=== PATIENT | male | born 1930 | race Caucasian/White ===

== ENCOUNTER → 2016-07-26 | Outpatient (CLI) | payer OTHER ==
[~2016-07-26] MED LIST: ACETAMINOPHEN-H1 TA2 PO; CARVEDILOL3.125 MG PO; DARVOCET N 1001 TAB PO; DOXYCYCLINE100 M3 PO; FISH OIL CONC1000 M2 PO; FUROSEMIDE20 M1 PO; GENERLAC10 GM/15 M PO; LUTEIN6 M2 PO; MAPAP325 MG PO; ONE DAILY MAXI1 EAC1 PO
[2016-07-26 11:55] LABS: BASO % 0.5 % (0.0-1.0); EOS # 0.1 10*3/uL (0.0-0.4); EOS % 5.3 % (1.0-4.0); HEMATOCRIT 28.5 % (42.0-52.0); HEMOGLOBIN 9.2 g/dl (14.0-18.0); LYMPH # 0.3 10*3/uL (1.3-4.4); MEAN CELL VOLUME 86.9 fl (80.0-94.0); MEAN CORPUSCULAR HGB CONC 32.3 g/dl (33.0-37.0); MEAN PLATELET VOLUME 8.8 fl (9.6-12.3); MONO # 0.1 10*3/uL (0.1-1.0); MONO % 5.8 % (3.0-9.0); NEUT # 1.5 10*3/uL (2.3-7.9); NEUT % 73.4 % (47.0-73.0); PLATELET COUNT AUTOMATED 62 10*3/uL (130-400); RED BLOOD COUNT 3.28 10*6/uL (4.50-5.90); RED CELL DISTRI WIDTH 17.6 % (0-14.5); WHITE BLOOD COUNT 2.1 10*3/uL (4.8-10.8)
[2016-07-26 12:29] LABS: ALBUMIN 2.5 gm/dl (3.1-4.5); ALKALINE PHOSPHATASE 127 U/L (45-117); BILIRUBIN, TOTAL 1.3 mg/dl (0.2-1.0); BUN 15 mg/dl (7-24); CARBON DIOXIDE 26 mmol/L (21-32); CHLORIDE 112 mmol/L (98-107); EST GLOM FILT AFRICAN AMERICAN > 60 ml/min; GLUCOSE 113 mg/dL (65-99); POTASSIUM 3.8 mmol/L (3.5-5.1); SGOT/AST 38 IU/L (3-35); SGPT/ALT 24 U/L (12-78); SODIUM 144 mmol/L (136-145); TOTAL PROTEIN 7.6 gm/dL (6.4-8.2)
[2016-07-26 13:22] LABS: IRON 225 ug/dL (65-175); IRON SATURATION 83 %; UIBC 44 ug/dL (110-410)
[2016-07-26 13:30] LABS: FOLIC ACID 15.04 ng/mL (>5.38); VITAMIN D, 25-HYDROXY 34.8 ng/mL (30-100)
== END | disposition home or self-care (01) ==
LOC: LAB 11:24
PROVIDERS: Internal Medicine
DX: N18.3 Chronic kidney disease, stage 3 (moderate) (principal); D50.0 Iron deficiency anemia secondary to blood loss (chronic); D64.9 Anemia, unspecified

== ENCOUNTER → 2016-07-28 | Outpatient (CLI) | payer OTHER | END | disposition home or self-care (01) | LOC: LAB 09:04 | DX: N18.3 Chronic kidney disease, stage 3 (moderate) (principal); D50.0 Iron deficiency anemia secondary to blood loss (chronic); D64.9 Anemia, unspecified ==

== ENCOUNTER → 2016-10-20 | Outpatient (CLI) | payer OTHER ==
[2016-10-20 16:02] LABS: HEMATOCRIT 27.1 % (42.0-52.0); HEMOGLOBIN 8.3 g/dl (14.0-18.0); MEAN CELL VOLUME 85.8 fl (80.0-94.0); MEAN CORPUSCULAR HGB 26.3 pg (27.0-31.0); MEAN CORPUSCULAR HGB CONC 30.6 g/dl (33.0-37.0); MEAN PLATELET VOLUME 8.9 fl (9.6-12.3); PLATELET COUNT AUTOMATED 59 10*3/uL (130-400); RED BLOOD COUNT 3.16 10*6/uL (4.50-5.90); RED CELL DISTRI WIDTH 15.6 % (0-14.5)
[2016-10-20 16:16] LABS: BUN 12 mg/dl (7-24); CARBON DIOXIDE 27 mmol/L (21-32); CHLORIDE 109 mmol/L (98-107); EST GLOM FILT AFRICAN AMERICAN > 60 ml/min; GLUCOSE 86 mg/dL (65-99); POTASSIUM 3.9 mmol/L (3.5-5.1); SODIUM 145 mmol/L (136-145)
[2016-10-20 16:28] LABS: EOSINOPHIL # 0.1 10*3/uL (0-0.4); EOSINOPHILS 5 % (1-4); HYPOCHROMIA SLIGHT; LYMPHOCYTE # 0.2 10*3/uL (1.3-4.4); MONOCYTE # 0.1 10*3/uL (0.1-1.0); NEUTROPHIL # 1.5 10*3/uL (2.3-7.9); NEUTROPHILS 81 % (47-73); PLATELET SUFFICIENCY LOW (NORMAL); POLYCHROMASIA SLIGHT; TOTAL CELLS COUNTED 100 #CELLS
[2016-10-20 16:36] LABS: WHITE BLOOD COUNT 1.9 10*3/uL (4.8-10.8)
== END | disposition home or self-care (01) ==
LOC: LAB 15:18
PROVIDERS: Internal Medicine
DX: I50.32 Chronic diastolic (congestive) heart failure (principal); D63.8 Anemia in other chronic diseases classified elsewhere

== ENCOUNTER → 2016-11-18 | Outpatient (CLI) | payer OTHER ==
[~2016-11-18] MED LIST changes: +PREDNISONE50 MG PO; +ULTRAM50 MG PO
== END | disposition home or self-care (01) ==
LOC: RAD 15:49
DX: M47.896 Other spondylosis, lumbar region (principal); M16.12 Unilateral primary osteoarthritis, left hip

== ENCOUNTER 2016-11-22 09:23 | Emergency (ER) | payer OTHER ==
[~2016-11-22] VITALS: Ht 180.3 cm; Wt 77.1 kg
[~2016-11-22 09:23] MED LIST changes: -PREDNISONE50 MG PO; -ULTRAM50 MG PO
[2016-11-22 10:16] LABS: BASO % 0.5 % (0.0-1.0); EOS # 0.1 10*3/uL (0.0-0.4); EOS % 5.4 % (1.0-4.0); HEMATOCRIT 25.7 % (42.0-52.0); LYMPH # 0.3 10*3/uL (1.3-4.4); LYMPH % 13.4 % (27.0-41.0); MEAN CELL VOLUME 81.6 fl (80.0-94.0); MEAN CORPUSCULAR HGB 25.4 pg (27.0-31.0); MEAN CORPUSCULAR HGB CONC 31.1 g/dl (33.0-37.0); MEAN PLATELET VOLUME 9.2 fl (9.6-12.3); MONO # 0.2 10*3/uL (0.1-1.0); MONO % 8.4 % (3.0-9.0); NEUT # 1.5 10*3/uL (2.3-7.9); NEUT % 71.8 % (47.0-73.0); PLATELET COUNT AUTOMATED 56 10*3/uL (130-400); RED BLOOD COUNT 3.15 10*6/uL (4.50-5.90); RED CELL DISTRI WIDTH 17.3 % (0-14.5)
[2016-11-22 10:25] LABS: INTERNATIONAL NORM RATIO 1.1 (2.0-3.5); PROTHROMBIN TIME 12.2 SECONDS (9.0-12.4)
[2016-11-22 10:32] LABS: ALBUMIN 2.6 gm/dl (3.1-4.5); ALKALINE PHOSPHATASE 93 U/L (45-117); BILIRUBIN, TOTAL 1.4 mg/dl (0.2-1.0); BUN 16 mg/dl (7-24); C-REACTIVE PROTEIN < 0.29 MG/DL (0-0.3); CARBON DIOXIDE 26 mmol/L (21-32); CHLORIDE 109 mmol/L (98-107); EST GLOM FILT AFRICAN AMERICAN > 60 ml/min; GLUCOSE 97 mg/dL (65-99); POTASSIUM 3.8 mmol/L (3.5-5.1); SGOT/AST 30 IU/L (3-35); SGPT/ALT 15 U/L (12-78); SODIUM 142 mmol/L (136-145); TOTAL PROTEIN 7.7 gm/dL (6.4-8.2)
[2016-11-22 11:56] LABS: BILIRUBIN NEGATIVE (NEGATIVE); BLOOD TRACE-INTACT (NEGATIVE); CLARITY CLEAR (CLEAR); COLOR YELLOW (YELLOW); GLUCOSE NEGATIVE (NEGATIVE); KETONE NEGATIVE (NEGATIVE); LEUKO ESTERASE NEGATIVE (NEGATIVE); NITRITE NEGATIVE (NEGATIVE); PROTEIN NEGATIVE (NEGATIVE); SPECIFIC GRAVITY <= 1.005 (1.005-1.030)
[2016-11-22 12:05] LABS: URINE REFLEX COMMENT NO (NO); WBC 0-2 wbc/hpf (0-5)
[2016-11-22 12:51] VITALS: BP 140/61
[2016-11-22] MEDS ORDERED: PREDNISONE50 MG PO (13:06)
[2016-11-22] MEDS ORDERED: ULTRAM50 MG PO (13:08)
== END 2016-11-22 13:51 | disposition home or self-care (01) ==
LOC: ED 09:23
PROVIDERS: Emergency Medicine
DX: M54.5 Low back pain (principal); K59.00 Constipation, unspecified; K74.60 Unspecified cirrhosis of liver; I12.9 Hypertensive chronic kidney disease with stage 1 through stage 4 chronic kidney disease, or unspecified chronic kidney disease; N18.3 Chronic kidney disease, stage 3 (moderate); Z90.49 Acquired absence of other specified parts of digestive tract; Z86.73 Personal history of transient ischemic attack (TIA), and cerebral infarction without residual deficits

== ENCOUNTER 2017-03-01 19:01 | Inpatient (IN) | payer OTHER ==
[~2017-03-01] VITALS: Ht 177.8 cm; Wt 74.0 kg
--- NOTE | ~2017-03-01 | PR ---
[place], [place] PROGRESS NOTE NAME: JUSTIN FRITZ [facility] #: [id number] UNIT #: [id number] ROOM: [place] [address] DOCTOR: BORIS RING MD BIRTHDATE: [birth year] DOS: 03/03/2017 SUBJECTIVE: The patient was seen at his bedside today, 03/03/2017, in the Intensive Care Unit for followup of his elevated troponin level. He is an 86-year-old man with nonalcoholic cirrhosis and chronic liver failure, who presented with increased confusion and elevated ammonia level. His troponin level was noted to be mildly elevated on admission and arose in a fashion suggesting an acute myocardial injury. Since he has been here, he has been given lactulose. His ammonia level has fallen and his sensorium has improved. A CAT scan of his chest was done and showed a pulmonary nodule suspicious for malignancy and metastatic disease. OBJECTIVE: GENERAL: On exam, he is an elderly man who is lying in bed and appears comfortable. He is awake and alert. VITAL SIGNS: Pulse is 65 and regular, blood pressure is 101/46. He is afebrile. NECK: Supple. He has no jugular distention. He does have mild hepatojugular reflux. Carotids are full. I heard no bruits. LUNGS: Respirations were unlabored. His chest had decreased breath sounds at the bases. HEART: Has a regular rhythm. He has a fourth heart sound. I did not hear a third heart sound or significant murmur. ABDOMEN: Soft and normoactive. EXTREMITIES: Showed no edema. LABORATORY DATA: Peak troponin level was 1.9 early this morning. Sodium is 144, potassium 3.6, BUN 16, creatinine 1.17. Hemoglobin is 7.6 with hematocrit 25.6, 4100 white cells and 41,000 platelets present. I reviewed his electrocardiogram from admission, he has mild nonspecific ST changes, but no ST elevation. I reviewed his echocardiogram today. A limited study was done for wall motion analysis. His ejection fraction is normal at greater than 60%. No specific regional wall motion abnormality was seen. IMPRESSION: 1. Non-ST segment elevation myocardial infarction. 2. Cirrhosis with recurrent hepatic failure. 3. Abnormal CAT scan of the chest, suggesting the presence of metastatic disease to the lungs. 4. Pancytopenia. 5. History of stroke. 6. Stage 3 chronic renal insufficiency, improving. PLAN: The patient certainly does show signs of an acute myocardial infarction by cardiac biomarkers, but left ventricular function is well preserved and he does not have any chest pain. For now, I would manage him very conservatively. I agree with the use of aspirin and beta blockers. Statins are not appropriate [place], [place] PROGRESS NOTE NAME: JUSTIN FRITZ [facility] #: [id number] UNIT #: [id number] ROOM: [place] [address] DOCTOR: MARÍA ELENA KNOX,BORIS BIRTHDATE: [birth year] in his management because of his hepatic failure. I think that the best long-term management is conservative and comfort oriented. No other aggressive or invasive cardiac assessment or management is planned at this time. We will continue to follow him with his primary physicians and we thank the hospitalist doctors for asking our advice regarding his care. BORIS RING MD CM:PNTRANS [id number] BORIS RING MD 03/03/17 1033 interface
--- NOTE | ~2017-03-01 | CON ---
[place], [place] REPORT OF CONSULTATION NAME: JUSTIN FRITZ [facility] #: [id number] UNIT #: [id number] ROOM: 409 DOCTOR: YONNY MA MD BIRTHDATE: [birth year] DOS: 03/08/2017 HISTORY OF PRESENT ILLNESS: The patient is a pleasant 86-year-old Euro-Gabonese gentleman brought by his daughter because of change in mental status and was treated accordingly. On routine CBC examination, he was found to have pancytopenia as well as new lung mass as well as a progressive lung mass, consulted for further evaluation and management. PAST MEDICAL HISTORY: Chronic renal failure stage III, cirrhosis of liver, pancytopenia, splenomegaly, diastolic heart failure, hepatic encephalopathy, history of CVA, hypertension, macular degeneration, and severe protein-calorie malnutrition. PAST SURGICAL HISTORY: Left inguinal hernia repair, history of unilateral nephrectomy, permanent right-sided nephrectomy, history of appendectomy, cholecystectomy, and ventral hernia repair. SOCIAL HISTORY: No smoking, drinking, or drug abuse. FAMILY HISTORY: Father at age 70. Mother at age 70. ALLERGIES: No allergies. MEDICATIONS: Folic acid, lactulose, ____, spironolactone. REVIEW OF SYSTEMS CONSTITUTIONAL: No chills. No fatigue. No fever. No loss of appetite. No night sweats. No weakness. No weight loss. HEENT: No trouble swallowing. No loss of smell. No loss of hearing. No double vision. No pain. No discharge. ENT AND RESPIRATORY: No wheeze. No sore throat. No change in voice. No hearing loss. No nose bleed. No cough. No trouble breathing through nose. No shortness of breath. No coughing up blood. No epistaxis. CARDIOVASCULAR: No chest pain. No dizziness. No irregular heartbeat. No leg edema. No pain in legs while walking. No palpitations. No shortness of breath. DERMATOLOGIC: No acne. No hives. No laceration. No mole. No rash. ENDOCRINE: No cold intolerance. No diabetes. No fatigue. No hot flashes. No polydipsia. No polyuria. No urinating frequently. No weight loss. HEMATOLOGIC AND LYMPH: No fatigue. No easy bruising. GASTROENTEROLOGIC: No change in bowel habits. No indigestion. No frequent bloating. No vomiting blood. No abdominal cramping. No nausea. No heartburn. No vomiting. No abdominal pain. No dysphagia. No diarrhea. No constipation. No blood in stool. MALE REPRODUCTIVE: No testicular pain. No difficulty with erection. No diminished sexual drive. No penile discharge. MUSCULOSKELETAL: No back pain. No muscle pain or weakness. No neck pain. No tingling/numbness. No swelling/bruising. No osteoporosis treatment. OPTHALMOLOGIC: No double vision. No diminished vision. No loss of vision. UROLOGIC: No dysuria. No frequent nighttime urination. No pain with [place], [place] REPORT OF CONSULTATION NAME: JUSTIN FRITZ UNIT #: [id number] ROOM: [facility] DOCTOR: YONNY MA MD BIRTHDATE: [birth year] urination. No difficulty urinating. No blood in urine. No frequent urination. No urinary incontinence. NEUROLOGIC: No loss of sensation in specific body area. No vertigo. No burning pain in feet. No trouble with balance. No trouble with coordination. No loss of consciousness. No loss of feeling/power. No confusion. No headache. No tingling/numbness. PSYCHOLOGIC: No tinnitus. No headaches. No shortness of breath. No weight decrease. No nausea. No vomiting. No abdominal discomfort. No constipation. No diarrhea. No depression. No anxiety. PHYSICAL EXAMINATION: GENERAL: A pleasant gentleman in no apparent distress. VITAL SIGNS: Stable, afebrile. Blood pressure 120/58, respirations 18, pulse 57, and temperature 98.1. HEENT: Oral mucosa appears intact. The external ears are normal in appearance. Nares are patent without lesions, exudates, erythema, or inflammation. Tongue is symmetrical. Uvula is midline. NECK AND THYROID: Neck supple without palpable masses. Trachea is midline. No thyromegaly. No carotid bruit or JVD. BREASTS: Normal. Nipples unremarkable. No drainage. No lumps felt on either side. HEART: Normal S1, S2, without significant murmur, rub, or gallop. LUNGS: Clear to auscultation and percussion with good air entry bilaterally. The patient is breathing easily without the use of accessory muscles. Diaphragmatic excursions are intact. ABDOMEN: No costovertebral angle tenderness. Soft. No organomegaly or masses. Nontender. No hernias present. Liver and spleen are not palpable. LYMPHATIC: No adenopathy noted in the cervical, supraclavicular, axillary, or inguinal regions. NEUROLGIC: Nonfocal. Oriented to person, place, and time. MENTAL STATUS: Appropriate for mood and affect. PERIPHERAL PULSES: No varicosities. Femoral and pedal pulses are palpable. EXTREMITIES: Without cyanosis, clubbing, or edema. No gross anomalies. LABORATORY DATA: Iron 149, TIBC 268, ferritin 25.8, vitamin B12 is 366, and folate 13.51. White count 1.8, hemoglobin 7.6, hematocrit 24.6, and platelet count 60,000. RADIOLOGY: CT scan of the chest showed a spiculated 2.2 x 1.6 cm mass in the right upper lobe, it has increased from 1.0 x 1.6 cm in diameter since 07/2009, suspicious for pulmonary malignancy, as well as a 3 mm nodule in the right lung base. Ultrasound of the belly showed no evidence of intra-abdominal ascites. ASSESSMENT: 1. Pancytopenia secondary to splenomegaly/cirrhosis of the liver. 2. Increase in the lung mass. 3. Status post 1 unit of packed RBC. PLAN: I had a detailed discussion with daughter Jazz ____ who does not want any aggressive measures to be done. Subsequently, transfusion on p.r.n. basis [place], [place] REPORT OF CONSULTATION NAME: JUSTIN FRITZ UNIT #: [id number] ROOM: 409 DOCTOR: YONNY MA MD BIRTHDATE: [birth year] as well as follow as outpatient and comfort and palliative measures. Jazz agreed with the plan. I also talked ____. His hemoglobin is 7.6, we will just keep a watch at this time. If it drops less than 7 to 7.5, we can give him a unit of blood at that time. Otherwise, follow up as outpatient. We will follow. Thanks for consulting and letting me participate in the care of this patient. YONNY MA MD CM:CONSTR:REPORT OF CONSULTATION 1537 03/09/17 0544 interface
--- NOTE | ~2017-03-01 | PR ---
[place], [place] PROGRESS NOTE [facility] [id number] UN[facility] #: [id number] ROOM: 409 DOCTOR: CARLOS WALLS BIRTHDATE: [birth year] DOS: 03/05/2017 SUBJECTIVE: The patient is an 86-year-old male who is being followed for a left leg cellulitis. He is currently on Ancef. His MRSA screen was negative. Blood cultures were negative. He is alert and oriented. Denies any fevers, chills, nausea, vomiting or diarrhea, not having any pain in the leg. LABORATORY DATA: Show WBC 1.7, platelets 55, BUN 10, creatinine 1.19, AST 46, ALT 18. Albumin 2. CURRENT MEDICATIONS: Include Ancef, lactulose, Toprol, aspirin, Protonix, Restoril, Zofran. PHYSICAL EXAMINATION: VITAL SIGNS: He has been afebrile. Show temperature 97.8, pulse 90, respirations 18, BP 145/57. GENERAL: An 86-year-old pleasant male in no acute distress. HEAD, EYES, EARS, NOSE AND THROAT: Normocephalic, no thrush. LUNGS: Clear to auscultation bilaterally. Respirations even and unlabored. HEART: Regular rhythm with murmur noted. ABDOMEN: Soft, nontender. EXTREMITIES: Left lower extremity +2 edema. No erythema, no tenderness. ASSESSMENT: Left leg cellulitis, which has improved. The erythema has resolved. PLAN: We will switch him over to the Keflex and probably stop the antibiotics in the next couple of days. He needs ultrasound of the left lower extremity, rule out DVT. Regarding his pancytopenia, I reviewed his labs going back over his lifetime time in the computer and appears that these are fairly close to baseline for him due to his cirrhosis. ADDENDUM I agree with the above plans as described. We will follow the patient accordingly and make adjustments as necessary. OCTOBER TITI GONZALEZ [place], [place] PROGRESS NOTE NAME: JUSTIN FRITZ UNIT #: [id number] ROOM: 409 DOCTOR: CARLOS WALLS BIRTHDATE: [birth year] JOSE C CARRANZA MD CM:GEORGE [id number] [phone] CARLOS WALLS 03/09/17 0544 interface
[~2017-03-01 19:01] MED LIST changes: +ALDACTONE25 MG PO; +CEPHULAC10 GM/151 PO; +LACTULOSE20 GM/30 M PO; -ONE DAILY MAXI1 EAC1 PO; +PREDNISONE50 MG PO; +ULTRAM50 MG PO; +[UNRECOGNIZED DRUG - OTHER] PO
[2017-03-01 19:05] VITALS: BP 139/69
[2017-03-01 19:51] LABS: BASO % 0.1 % (0.0-1.0); EOS # 0.1 10*3/uL (0.0-0.4); HEMATOCRIT 28.9 % (42.0-52.0); HEMOGLOBIN 8.7 g/dl (14.0-18.0); LYMPH # 0.2 10*3/uL (1.3-4.4); LYMPH % 3.3 % (27.0-41.0); MEAN CELL VOLUME 79.8 fl (80.0-94.0); MEAN CORPUSCULAR HGB CONC 30.1 g/dl (33.0-37.0); MEAN PLATELET VOLUME 9.2 fl (9.6-12.3); MONO # 0.5 10*3/uL (0.1-1.0); MONO % 6.6 % (3.0-9.0); NEUT # 6.1 10*3/uL (2.3-7.9); NEUT % 88.6 % (47.0-73.0); PLATELET COUNT AUTOMATED 64 10*3/uL (130-400); RED BLOOD COUNT 3.62 10*6/uL (4.50-5.90); RED CELL DISTRI WIDTH 18.7 % (0-14.5); WHITE BLOOD COUNT 6.9 10*3/uL (4.8-10.8)
[2017-03-01 20:01] LABS: ACT PARTIAL THROMBO TIME 26.1 SECONDS (20.8-31.5); INTERNATIONAL NORM RATIO 1.1 (2.0-3.5)
[2017-03-01 20:12] LABS: ALBUMIN 2.7 gm/dl (3.1-4.5); CREATININE 1.67 mg/dL (0.70-1.30); MAGNESIUM 1.8 mg/dL (1.5-2.1); POTASSIUM 4.1 mmol/L (3.5-5.1); TOTAL PROTEIN 8.1 gm/dL (6.4-8.2)
[2017-03-01 20:13] LABS: TROPONIN I 0.032 ng/ml (<0.045)
[2017-03-01 20:57] LABS: BILIRUBIN NEGATIVE (NEGATIVE); BLOOD NEGATIVE (NEGATIVE); CLARITY SL CLOUDY (CLEAR); COLOR YELLOW (YELLOW); GLUCOSE NEGATIVE (NEGATIVE); KETONE TRACE (NEGATIVE); LEUKO ESTERASE NEGATIVE (NEGATIVE); NITRITE NEGATIVE (NEGATIVE); PH 5.5 (5.0-9.0); SPECIFIC GRAVITY >= 1.030 (1.005-1.030); UROBILINOGEN 0.2 E.U./dl (0.2-1.0)
[2017-03-01 21:15] VITALS: BP 130/72
[2017-03-01 21:22] LABS: BACTERIA TRACE; WBC 0-2 wbc/hpf (0-5)
[2017-03-01 22:00] VITALS: BP 118/74
[2017-03-01] MEDS ORDERED: LACTULOSE20 GM/30 M PO (23:23)
[2017-03-02] VITALS: BP 141/63
[2017-03-02 03:34] LABS: BASO % 0.1 % (0.0-1.0); EOS % 0.3 % (1.0-4.0); HEMATOCRIT 26.9 % (42.0-52.0); HEMOGLOBIN 8.1 g/dl (14.0-18.0); LYMPH # 0.3 10*3/uL (1.3-4.4); LYMPH % 3.6 % (27.0-41.0); MEAN CELL VOLUME 80.3 fl (80.0-94.0); MEAN CORPUSCULAR HGB 24.2 pg (27.0-31.0); MEAN CORPUSCULAR HGB CONC 30.1 g/dl (33.0-37.0); MEAN PLATELET VOLUME 8.4 fl (9.6-12.3); MONO # 0.6 10*3/uL (0.1-1.0); MONO % 8.2 % (3.0-9.0); NEUT % 86.8 % (47.0-73.0); PLATELET COUNT AUTOMATED 52 10*3/uL (130-400); RED BLOOD COUNT 3.35 10*6/uL (4.50-5.90); RED CELL DISTRI WIDTH 18.6 % (0-14.5)
[2017-03-02 03:47] LABS: ALBUMIN 2.5 gm/dl (3.1-4.5); CREATININE 1.54 mg/dL (0.70-1.30); MAGNESIUM 1.8 mg/dL (1.5-2.1); PHOSPHOROUS 2.8 mg/dL (2.5-4.9); POTASSIUM 3.7 mmol/L (3.5-5.1); TOTAL PROTEIN 7.6 gm/dL (6.4-8.2)
[2017-03-02 04:59] VITALS: BP 146/60
[2017-03-02 08:00] VITALS: BP 137/79
[2017-03-02] MEDS ORDERED: ENSURE ORIGINA237 ML PO (08:05)
[2017-03-02 12:00] VITALS: BP 109/50
[2017-03-02 16:00] VITALS: BP 102/51
[2017-03-02 20:00] VITALS: BP 132/60
[2017-03-03] VITALS: BP 116/46
[2017-03-03 04:00] VITALS: BP 120/51
[2017-03-03 06:09] LABS: HEMATOCRIT 25.6 % (42.0-52.0); HEMOGLOBIN 7.6 g/dl (14.0-18.0); MEAN CELL VOLUME 81.5 fl (80.0-94.0); MEAN CORPUSCULAR HGB 24.2 pg (27.0-31.0); MEAN CORPUSCULAR HGB CONC 29.7 g/dl (33.0-37.0); MEAN PLATELET VOLUME 9.7 fl (9.6-12.3); PLATELET COUNT AUTOMATED 41 10*3/uL (130-400); RED BLOOD COUNT 3.14 10*6/uL (4.50-5.90); WHITE BLOOD COUNT 4.1 10*3/uL (4.8-10.8)
[2017-03-03 06:38] LABS: PLATELET SUFFICIENCY LOW (NORMAL); POLYCHROMASIA SLIGHT; TOTAL CELLS COUNTED 100 #CELLS
[2017-03-03 06:47] LABS: BUN 16 mg/dl (7-24); CHLORIDE 118 mmol/L (98-107); MAGNESIUM 1.6 mg/dL (1.5-2.1); POTASSIUM 3.6 mmol/L (3.5-5.1); SODIUM 144 mmol/L (136-145)
[2017-03-03 06:51] LABS: ALKALINE PHOSPHATASE 80 U/L (45-117); CREATININE 1.17 mg/dL (0.70-1.30); PHOSPHOROUS 1.9 mg/dL (2.5-4.9); SGOT/AST 50 IU/L (3-35); SGPT/ALT 21 U/L (12-78); TOTAL PROTEIN 6.4 gm/dL (6.4-8.2)
[2017-03-03 08:00] VITALS: BP 101/46
[2017-03-03 12:00] VITALS: BP 105/55
[2017-03-03 16:00] VITALS: BP 99/60
[2017-03-03 20:00] VITALS: BP 99/68
[2017-03-04] VITALS: BP 117/53
[2017-03-04 03:40] VITALS: BP 115/43
[2017-03-04 06:15] LABS: HEMATOCRIT 23.6 % (42.0-52.0); MEAN CELL VOLUME 81.4 fl (80.0-94.0); MEAN CORPUSCULAR HGB 24.1 pg (27.0-31.0); MEAN CORPUSCULAR HGB CONC 29.7 g/dl (33.0-37.0); MEAN PLATELET VOLUME 9.2 fl (9.6-12.3); PLATELET COUNT AUTOMATED 46 10*3/uL (130-400); RED CELL DISTRI WIDTH 18.7 % (0-14.5)
[2017-03-04 06:27] LABS: ALBUMIN 1.9 gm/dl (3.1-4.5); ALKALINE PHOSPHATASE 75 U/L (45-117); BUN 13 mg/dl (7-24); CHLORIDE 115 mmol/L (98-107); CREATININE 1.16 mg/dL (0.70-1.30); MAGNESIUM 1.8 mg/dL (1.5-2.1); PHOSPHOROUS 2.3 mg/dL (2.5-4.9); POTASSIUM 3.7 mmol/L (3.5-5.1); SGOT/AST 39 IU/L (3-35); SGPT/ALT 18 U/L (12-78); SODIUM 143 mmol/L (136-145); TOTAL PROTEIN 6.1 gm/dL (6.4-8.2)
[2017-03-04 07:09] LABS: OVALOCYTES FEW; PLATELET SUFFICIENCY LOW (NORMAL); POLYCHROMASIA SLIGHT; TOTAL CELLS COUNTED 100 #CELLS
[2017-03-04 08:00] VITALS: BP 112/60
[2017-03-04 12:00] VITALS: BP 120/78
[2017-03-04 20:00] VITALS: BP 114/54
[2017-03-05] VITALS: BP 110/60
[2017-03-05 06:39] LABS: HEMATOCRIT 24.8 % (42.0-52.0); HEMOGLOBIN 7.5 g/dl (14.0-18.0); MEAN CORPUSCULAR HGB 24.5 pg (27.0-31.0); MEAN CORPUSCULAR HGB CONC 30.2 g/dl (33.0-37.0); MEAN PLATELET VOLUME 9.8 fl (9.6-12.3); PLATELET COUNT AUTOMATED 55 10*3/uL (130-400); RED BLOOD COUNT 3.06 10*6/uL (4.50-5.90); RED CELL DISTRI WIDTH 18.7 % (0-14.5)
[2017-03-05 07:01] LABS: ALKALINE PHOSPHATASE 87 U/L (45-117); BUN 10 mg/dl (7-24); CHLORIDE 111 mmol/L (98-107); CREATININE 1.19 mg/dL (0.70-1.30); PHOSPHOROUS 2.3 mg/dL (2.5-4.9); POTASSIUM 3.9 mmol/L (3.5-5.1); SGOT/AST 46 IU/L (3-35); SGPT/ALT 18 U/L (12-78); SODIUM 141 mmol/L (136-145); TOTAL PROTEIN 6.7 gm/dL (6.4-8.2)
[2017-03-05 07:15] LABS: BASOPHILS 1 % (0-1); PLATELET SUFFICIENCY LOW (NORMAL); TOTAL CELLS COUNTED 100 #CELLS
[2017-03-05 07:17] LABS: OVALOCYTES FEW
[2017-03-05 07:32] LABS: WHITE BLOOD COUNT 1.7 10*3/uL (4.8-10.8)
[2017-03-05 09:00] VITALS: BP 112/50
[2017-03-05 12:00] VITALS: BP 133/50
[2017-03-05 18:52] VITALS: BP 145/57
[2017-03-05 20:00] VITALS: BP 122/42
[2017-03-06] VITALS: BP 114/51
[2017-03-06 06:01] LABS: HEMATOCRIT 23.2 % (42.0-52.0); HEMOGLOBIN 7.3 g/dl (14.0-18.0); MEAN CELL VOLUME 79.7 fl (80.0-94.0); MEAN CORPUSCULAR HGB 25.1 pg (27.0-31.0); MEAN CORPUSCULAR HGB CONC 31.5 g/dl (33.0-37.0); MEAN PLATELET VOLUME 8.7 fl (9.6-12.3); PLATELET COUNT AUTOMATED 61 10*3/uL (130-400); RED BLOOD COUNT 2.91 10*6/uL (4.50-5.90); RED CELL DISTRI WIDTH 18.5 % (0-14.5)
[2017-03-06 06:23] LABS: BUN 10 mg/dl (7-24); CHLORIDE 112 mmol/L (98-107); CREATININE 1.14 mg/dL (0.70-1.30); POTASSIUM 3.7 mmol/L (3.5-5.1); SODIUM 141 mmol/L (136-145)
[2017-03-06 06:32] LABS: ATYPICAL LYMPHS 1 % (0-0); BASOPHILS 2 % (0-1); PLATELET SUFFICIENCY LOW (NORMAL); TOTAL CELLS COUNTED 100 #CELLS
[2017-03-06 06:35] LABS: WHITE BLOOD COUNT 1.8 10*3/uL (4.8-10.8)
[2017-03-06 08:00] VITALS: BP 116/50
[2017-03-06 12:00] VITALS: BP 101/56
[2017-03-06 16:00] VITALS: BP 122/54
[2017-03-06 20:00] VITALS: BP 104/32
[2017-03-07] VITALS (9 sets, daily range): BP systolic 115–127; BP diastolic 34–64
[2017-03-07 06:12] LABS: HEMATOCRIT 22.1 % (42.0-52.0); HEMOGLOBIN 6.8 g/dl (14.0-18.0); MEAN CELL VOLUME 81.3 fl (80.0-94.0); MEAN CORPUSCULAR HGB CONC 30.8 g/dl (33.0-37.0); PLATELET COUNT AUTOMATED 54 10*3/uL (130-400); RED BLOOD COUNT 2.72 10*6/uL (4.50-5.90); RED CELL DISTRI WIDTH 18.7 % (0-14.5)
[2017-03-07 06:56] LABS: WHITE BLOOD COUNT 1.5 10*3/uL (4.8-10.8)
[2017-03-07 07:33] LABS: TOTAL CELLS COUNTED 100 #CELLS
[2017-03-07 07:34] LABS: OVALOCYTES FEW; PLATELET SUFFICIENCY LOW (NORMAL); POLYCHROMASIA SLIGHT
[2017-03-07 15:01] LABS: HEMATOCRIT 25.8 % (42.0-52.0); HEMOGLOBIN 8.1 g/dl (14.0-18.0)
[2017-03-08] VITALS: BP 140/49
[2017-03-08 06:30] LABS: HEMATOCRIT 24.6 % (42.0-52.0); HEMOGLOBIN 7.6 g/dl (14.0-18.0); MEAN CELL VOLUME 81.5 fl (80.0-94.0); MEAN CORPUSCULAR HGB 25.2 pg (27.0-31.0); MEAN CORPUSCULAR HGB CONC 30.9 g/dl (33.0-37.0); MEAN PLATELET VOLUME 9.6 fl (9.6-12.3); PLATELET COUNT AUTOMATED 60 10*3/uL (130-400); RED BLOOD COUNT 3.02 10*6/uL (4.50-5.90); RED CELL DISTRI WIDTH 18.5 % (0-14.5); RETICULOCYTE % 1.15 % (0.50-2.50)
[2017-03-08 06:36] LABS: TOTAL IRON BINDING CAPACITY 268 ug/dl (250-450)
[2017-03-08 07:41] LABS: TOTAL CELLS COUNTED 100 #CELLS
[2017-03-08 07:42] LABS: PLATELET SUFFICIENCY LOW (NORMAL); POLYCHROMASIA SLIGHT
[2017-03-08 07:43] LABS: WHITE BLOOD COUNT 1.8 10*3/uL (4.8-10.8)
[2017-03-08 08:00] VITALS: BP 130/59
[2017-03-08 08:25] LABS: FERRITIN 25.8 ng/mL (22.0-322.0)
[2017-03-08 08:27] LABS: IRON 149 ug/dL (65-175)
[2017-03-08 12:00] VITALS: BP 129/58
[2017-03-08 16:00] VITALS: BP 111/48
[2017-03-08 20:00] VITALS: BP 123/60
[2017-03-09] VITALS: BP 109/50
[2017-03-09 08:00] VITALS: BP 109/49
[2017-03-09 09:08] LABS: BASO % 0.4 % (0.0-1.0); EOS # 0.2 10*3/uL (0.0-0.4); EOS % 7.1 % (1.0-4.0); HEMATOCRIT 25.8 % (42.0-52.0); HEMOGLOBIN 7.9 g/dl (14.0-18.0); LYMPH # 0.4 10*3/uL (1.3-4.4); LYMPH % 18.3 % (27.0-41.0); MEAN CELL VOLUME 81.9 fl (80.0-94.0); MEAN CORPUSCULAR HGB 25.1 pg (27.0-31.0); MEAN CORPUSCULAR HGB CONC 30.6 g/dl (33.0-37.0); MEAN PLATELET VOLUME 8.9 fl (9.6-12.3); MONO # 0.2 10*3/uL (0.1-1.0); MONO % 6.7 % (3.0-9.0); NEUT # 1.5 10*3/uL (2.3-7.9); NEUT % 67.1 % (47.0-73.0); PLATELET COUNT AUTOMATED 65 10*3/uL (130-400); RED BLOOD COUNT 3.15 10*6/uL (4.50-5.90); RED CELL DISTRI WIDTH 18.6 % (0-14.5); WHITE BLOOD COUNT 2.2 10*3/uL (4.8-10.8)
[2017-03-09 12:00] VITALS: BP 121/54
[2017-03-09 16:00] VITALS: BP 112/46
[2017-03-09 20:00] VITALS: BP 112/42
[2017-03-10] VITALS: BP 134/56
[2017-03-10 06:43] LABS: HEMATOCRIT 24.8 % (42.0-52.0); HEMOGLOBIN 7.4 g/dl (14.0-18.0); MEAN CELL VOLUME 82.7 fl (80.0-94.0); MEAN CORPUSCULAR HGB 24.7 pg (27.0-31.0); MEAN CORPUSCULAR HGB CONC 29.8 g/dl (33.0-37.0); MEAN PLATELET VOLUME 8.9 fl (9.6-12.3); PLATELET COUNT AUTOMATED 61 10*3/uL (130-400); RED CELL DISTRI WIDTH 18.8 % (0-14.5)
[2017-03-10 07:01] LABS: BUN 14 mg/dl (7-24); CHLORIDE 109 mmol/L (98-107); CREATININE 1.17 mg/dL (0.70-1.30); POTASSIUM 4.1 mmol/L (3.5-5.1); SODIUM 141 mmol/L (136-145)
[2017-03-10 07:05] LABS: BASOPHILS 1 % (0-1); TOTAL CELLS COUNTED 100 #CELLS
[2017-03-10 07:06] LABS: PLATELET SUFFICIENCY LOW (NORMAL); POLYCHROMASIA SLIGHT
[2017-03-10 07:07] LABS: WHITE BLOOD COUNT 1.9 10*3/uL (4.8-10.8)
[2017-03-10 08:00] VITALS: BP 112/52
[2017-03-10 12:00] VITALS: BP 116/64; BP 128/62
[2017-03-10] MEDS ORDERED: KEFLEX 500 MG E2 CAP PO (14:39)
[2017-03-10] MEDS ORDERED: METOPROLOL SUCC25 M2 PO (14:39)
[2017-03-10] MEDS ORDERED: ASPIRIN ADULT L81 M2 PO (14:39)
[2017-03-10 20:00] VITALS: BP 124/40
[2017-03-11] VITALS: BP 107/45
[2017-03-11 08:00] VITALS: BP 117/58
== END 2017-03-11 13:00 | disposition home or self-care (01) | DRG 871 ==
LOC: ED 19:01 → EDHOLD 20:39 → ICCU 20:39 → 4E 03-04 14:02
PROVIDERS: Emergency Medicine Emergency Medical Services; Family Medicine; Internal Medicine; Internal Medicine Hematology & Oncology; Internal Medicine Nephrology; ADMIT Internal Medicine
PROC: 30233N1 Transfusion of Nonautologous Red Blood Cells into Peripheral Vein, Percutaneous Approach (ICD-10-PCS; principal; 2017-03-07)
DX: A41.9 Sepsis, unspecified organism (principal); K72.00 Acute and subacute hepatic failure without coma; I21.4 Non-ST elevation (NSTEMI) myocardial infarction; E43 Unspecified severe protein-calorie malnutrition; G93.41 Metabolic encephalopathy; D61.818 Other pancytopenia; E72.20 Disorder of urea cycle metabolism, unspecified; I13.0 Hypertensive heart and chronic kidney disease with heart failure and stage 1 through stage 4 chronic kidney disease, or unspecified chronic kidney disease; D69.6 Thrombocytopenia, unspecified; I50.32 Chronic diastolic (congestive) heart failure; L03.116 Cellulitis of left lower limb; R65.20 Severe sepsis without septic shock; K74.60 Unspecified cirrhosis of liver; Z66 Do not resuscitate; Z51.5 Encounter for palliative care; N18.3 Chronic kidney disease, stage 3 (moderate); H35.30 Unspecified macular degeneration; K43.9 Ventral hernia without obstruction or gangrene; D72.810 Lymphocytopenia; R73.9 Hyperglycemia, unspecified; E83.39 Other disorders of phosphorus metabolism; R91.8 Other nonspecific abnormal finding of lung field; R16.1 Splenomegaly, not elsewhere classified; Z68.23 Body mass index [BMI] 23.0-23.9, adult; Z79.899 Other long term (current) drug therapy; Z90.5 Acquired absence of kidney; Z90.49 Acquired absence of other specified parts of digestive tract; Z86.73 Personal history of transient ischemic attack (TIA), and cerebral infarction without residual deficits

== ENCOUNTER 2017-04-13 09:08 | Inpatient (IN) | payer OTHER ==
[~2017-04-13] VITALS: Ht 182.8 cm; Wt 72.4 kg
[~2017-04-13 09:08] MED LIST changes: +ASPIRIN ADULT L81 M2 PO; +ENSURE ORIGINA237 ML PO; +KEFLEX 500 MG E2 CAP PO; +METOPROLOL SUCC25 M2 PO
[2017-04-13 09:12] VITALS: BP 125/72
[2017-04-13 09:42] LABS: BASO % 0.6 % (0.0-1.0); EOS # 0.1 10*3/uL (0.0-0.4); EOS % 4.2 % (1.0-4.0); HEMATOCRIT 29.9 % (42.0-52.0); HEMOGLOBIN 9.3 g/dl (14.0-18.0); LYMPH # 0.3 10*3/uL (1.3-4.4); LYMPH % 10.5 % (27.0-41.0); MEAN CELL VOLUME 80.4 fl (80.0-94.0); MEAN CORPUSCULAR HGB CONC 31.1 g/dl (33.0-37.0); MEAN PLATELET VOLUME 8.6 fl (9.6-12.3); MONO # 0.2 10*3/uL (0.1-1.0); NEUT # 2.4 10*3/uL (2.3-7.9); NEUT % 77.7 % (47.0-73.0); PLATELET COUNT AUTOMATED 52 10*3/uL (130-400); RED BLOOD COUNT 3.72 10*6/uL (4.50-5.90); RED CELL DISTRI WIDTH 18.6 % (0-14.5); WHITE BLOOD COUNT 3.1 10*3/uL (4.8-10.8)
[2017-04-13 09:50] LABS: ACT PARTIAL THROMBO TIME 29.8 SECONDS (20.8-31.5); INTERNATIONAL NORM RATIO 1.1 (2.0-3.5)
[2017-04-13 09:59] LABS: ALBUMIN 2.8 gm/dl (3.1-4.5); ALKALINE PHOSPHATASE 111 U/L (45-117); BUN 17 mg/dl (7-24); CHLORIDE 109 mmol/L (98-107); CREATININE 1.54 mg/dL (0.70-1.30); POTASSIUM 3.9 mmol/L (3.5-5.1); SGOT/AST 41 IU/L (3-35); SGPT/ALT 23 U/L (12-78); SODIUM 142 mmol/L (136-145); TOTAL PROTEIN 8.6 gm/dL (6.4-8.2); TROPONIN I < 0.015 ng/ml (<0.045)
[2017-04-13 10:22] VITALS: BP 112/58
[2017-04-13] MEDS ORDERED: TRAMADOL HCL50 MG PO (11:36)
[2017-04-13] MEDS ORDERED: CONSTULOSE10 GM/151 PO (11:41)
[2017-04-13 12:00] VITALS: BP 120/61
--- NOTE | 2017-04-13 12:23 | NUR ---
Time: 4 A 86 year old MALE admitted to 5E under services of MERA TREJO. Pt. arrived via bed from ER. Chief complaint: HEPATIC ENCEPHALOPATHY. JOELLE WARREN
[2017-04-13 15:55] LABS: BILIRUBIN NEGATIVE (NEGATIVE); BLOOD TRACE-INTACT (NEGATIVE); CLARITY CLEAR (CLEAR); COLOR YELLOW (YELLOW); GLUCOSE NEGATIVE (NEGATIVE); KETONE TRACE (NEGATIVE); LEUKO ESTERASE NEGATIVE (NEGATIVE); NITRITE NEGATIVE (NEGATIVE); SPECIFIC GRAVITY 1.025 (1.005-1.030); UROBILINOGEN 0.2 E.U./dl (0.2-1.0)
[2017-04-13 16:00] VITALS: BP 138/67
--- NOTE | 2017-04-13 19:40 | NUR ---
PATIENT RESTING QUIETLY IN BED. FAMILY MEMBER AT BEDSIDE. PATIENT IS A&O X3. PLEASANT/COOPERATIVE WITH CARE. HE HAS NO VOICED C/O AT THIS TIME. RESPIRATIONS EASY/REGULAR. NO SXS OF DISTRESS. COTTON SWAB PLACED LABORATORY OPERATIONS COORDINATOR BUTTON TO AID PATIENT IN PRESSING BUTTON. CALL LIGHT IS IN REACH. WILL MONITOR.
[2017-04-13 19:51] VITALS: BP 136/66
[2017-04-14] VITALS: BP 134/68
--- NOTE | 2017-04-14 01:30 | NUR ---
PATIENT RESTING QUIETLY IN BED. NO VOICED COMPLAINTS. NO SXS OF DISTRESS. RESPIRATIONS EASY/REGULAR. FLUIDS MAINTAINED PER ORDER. CALL LIGHT IS IN REACH. WILL MONITOR.
[2017-04-14 06:11] LABS: BASO % 0.8 % (0.0-1.0); EOS # 0.2 10*3/uL (0.0-0.4); EOS % 7.1 % (1.0-4.0); HEMATOCRIT 29.9 % (42.0-52.0); HEMOGLOBIN 8.9 g/dl (14.0-18.0); LYMPH # 0.4 10*3/uL (1.3-4.4); LYMPH % 15.8 % (27.0-41.0); MEAN CELL VOLUME 83.1 fl (80.0-94.0); MEAN CORPUSCULAR HGB 24.7 pg (27.0-31.0); MEAN CORPUSCULAR HGB CONC 29.8 g/dl (33.0-37.0); MONO # 0.2 10*3/uL (0.1-1.0); MONO % 8.3 % (3.0-9.0); NEUT # 1.7 10*3/uL (2.3-7.9); NEUT % 67.6 % (47.0-73.0); PLATELET COUNT AUTOMATED 62 10*3/uL (130-400); RED CELL DISTRI WIDTH 18.6 % (0-14.5); WHITE BLOOD COUNT 2.5 10*3/uL (4.8-10.8)
[2017-04-14 06:29] LABS: ALBUMIN 2.6 gm/dl (3.1-4.5); ALKALINE PHOSPHATASE 100 U/L (45-117); BUN 14 mg/dl (7-24); CHLORIDE 114 mmol/L (98-107); CREATININE 1.29 mg/dL (0.70-1.30); MAGNESIUM 1.8 mg/dL (1.5-2.1); PHOSPHOROUS 2.8 mg/dL (2.5-4.9); POTASSIUM 4.1 mmol/L (3.5-5.1); SGOT/AST 36 IU/L (3-35); SGPT/ALT 21 U/L (12-78); SODIUM 142 mmol/L (136-145)
[2017-04-14 06:30] LABS: ACT PARTIAL THROMBO TIME 31.8 SECONDS (20.8-31.5); INTERNATIONAL NORM RATIO 1.2 (2.0-3.5)
[2017-04-14 06:34] LABS: FREE T4 1.09 ng/dl (0.76-1.46)
--- NOTE | 2017-04-14 06:47 | NUR ---
PATIENT WAS UP AND DOWN T/O SHIFT GOING TO THE BR. HE WALKS TO BR WITH 1 ASSIST. PLEASANT/COOPERATIVE WITH CARE. NO VOICED COMPLAINTS AT THIS TIME. CALL LIGHT IS IN REACH.
[2017-04-14 08:00] VITALS: BP 136/56
--- NOTE | 2017-04-14 11:04 | NUR ---
PHYSICAL THERAPY PAtient evaluated on 5, full evaluation to follow. Continue with PT as per plan of care with fall and acute debility precuation. PAtient is moderate compleity via chart review, tests and evaluation: 38051. SNF for impaired mobility versus SNF, to return to PLOF. Thank you for this referral. Sheree Roberts,PT
[2017-04-14 12:00] VITALS: BP 131/63
[2017-04-14 16:00] VITALS: BP 126/61
[2017-04-14 20:00] VITALS: BP 152/61
[2017-04-15] VITALS: BP 154/66
--- NOTE | 2017-04-15 03:21 | NUR ---
PATIENT RESTING IN BED WITH EYES CLOSED. NO SIGNS OR SYMTOMS OF DISTRESS NOTED. RESTED WELL THROUGHOUT SHIFT. WILL CONTINUE TO MONITOR. CALL LIGHT IN REACH.
[2017-04-15 07:20] LABS: BASO % 0.8 % (0.0-1.0); EOS # 0.2 10*3/uL (0.0-0.4); EOS % 8.6 % (1.0-4.0); HEMATOCRIT 27.7 % (42.0-52.0); HEMOGLOBIN 8.6 g/dl (14.0-18.0); LYMPH # 0.4 10*3/uL (1.3-4.4); LYMPH % 14.5 % (27.0-41.0); MEAN CELL VOLUME 82.4 fl (80.0-94.0); MEAN CORPUSCULAR HGB 25.6 pg (27.0-31.0); MEAN PLATELET VOLUME 9.1 fl (9.6-12.3); MONO # 0.2 10*3/uL (0.1-1.0); MONO % 7.8 % (3.0-9.0); NEUT # 1.7 10*3/uL (2.3-7.9); NEUT % 67.9 % (47.0-73.0); PLATELET COUNT AUTOMATED 52 10*3/uL (130-400); RED BLOOD COUNT 3.36 10*6/uL (4.50-5.90); RED CELL DISTRI WIDTH 18.6 % (0-14.5); WHITE BLOOD COUNT 2.6 10*3/uL (4.8-10.8)
[2017-04-15 07:33] LABS: ALBUMIN 2.3 gm/dl (3.1-4.5); ALKALINE PHOSPHATASE 94 U/L (45-117); BUN 10 mg/dl (7-24); CHLORIDE 110 mmol/L (98-107); CREATININE 1.18 mg/dL (0.70-1.30); POTASSIUM 3.9 mmol/L (3.5-5.1); SGOT/AST 37 IU/L (3-35); SGPT/ALT 20 U/L (12-78); SODIUM 140 mmol/L (136-145); TOTAL PROTEIN 7.5 gm/dL (6.4-8.2)
[2017-04-15 08:00] VITALS: BP 130/76
--- NOTE | 2017-04-15 08:00 | NUR ---
ASSESSMENT COMPLETE, PT SITTING AT SIDE OF BED. STATES FEELS CONFUSED HOWEVER ALERT TO PERSON, PLACE, TIME, SITUATION AT THIS TIME. PT STATES FEELS GOOD AND IS READY TO GO HOME, NO COMPLAINTS AT THIS TIME. PT HAS BRIEF INTACT PER PATIENT REQUEST.
--- NOTE | 2017-04-15 08:30 | NUR ---
Shift chart check completed.
[2017-04-15 12:00] VITALS: BP 114/68
--- NOTE | 2017-04-15 13:20 | NUR ---
Discharge instructions reviewed with patient/son. Patient receptive and verbalizes understanding. Follow-up care understood. Written instructions given to patient/son AYSHA CHRISTOPHER
== END 2017-04-15 13:20 | disposition home or self-care (01) | DRG 441 ==
LOC: ED 09:08 → EDHOLD 10:08 → 5E 10:08 → 4E 10:33 → 5E 10:55
PROVIDERS: Hospitalist; Internal Medicine; ADMIT Emergency Medicine
DX: K72.90 Hepatic failure, unspecified without coma (principal); E43 Unspecified severe protein-calorie malnutrition; G93.41 Metabolic encephalopathy; N17.9 Acute kidney failure, unspecified; D61.818 Other pancytopenia; I50.32 Chronic diastolic (congestive) heart failure; N18.3 Chronic kidney disease, stage 3 (moderate); I13.0 Hypertensive heart and chronic kidney disease with heart failure and stage 1 through stage 4 chronic kidney disease, or unspecified chronic kidney disease; R91.8 Other nonspecific abnormal finding of lung field; I25.10 Atherosclerotic heart disease of native coronary artery without angina pectoris; D73.1 Hypersplenism; E86.0 Dehydration; H35.30 Unspecified macular degeneration; K74.60 Unspecified cirrhosis of liver; Z51.5 Encounter for palliative care; Z66 Do not resuscitate; Z86.73 Personal history of transient ischemic attack (TIA), and cerebral infarction without residual deficits; I25.2 Old myocardial infarction; Z87.442 Personal history of urinary calculi; Z90.5 Acquired absence of kidney; Z90.49 Acquired absence of other specified parts of digestive tract; Z79.82 Long term (current) use of aspirin; Z79.899 Other long term (current) drug therapy; Z68.21 Body mass index [BMI] 21.0-21.9, adult

== ENCOUNTER 2017-04-23 18:26 | Inpatient (IN) | payer OTHER ==
[~2017-04-23] VITALS: Ht 182.9 cm; Wt 74.4 kg
[~2017-04-23 18:26] MED LIST changes: +CONSTULOSE10 GM/151 PO; +TRAMADOL HCL50 MG PO
[2017-04-23 18:28] VITALS: BP 141/49
[2017-04-23 18:58] LABS: BASO % 0.4 % (0.0-1.0); EOS # 0.2 10*3/uL (0.0-0.4); EOS % 7.1 % (1.0-4.0); HEMATOCRIT 28.2 % (42.0-52.0); HEMOGLOBIN 8.5 g/dl (14.0-18.0); LYMPH # 0.4 10*3/uL (1.3-4.4); LYMPH % 14.3 % (27.0-41.0); MEAN CORPUSCULAR HGB 24.7 pg (27.0-31.0); MEAN CORPUSCULAR HGB CONC 30.1 g/dl (33.0-37.0); MEAN PLATELET VOLUME 9.2 fl (9.6-12.3); MONO # 0.2 10*3/uL (0.1-1.0); MONO % 7.9 % (3.0-9.0); NEUT # 1.8 10*3/uL (2.3-7.9); NEUT % 70.3 % (47.0-73.0); PLATELET COUNT AUTOMATED 59 10*3/uL (130-400); RED BLOOD COUNT 3.44 10*6/uL (4.50-5.90); RED CELL DISTRI WIDTH 18.8 % (0-14.5); WHITE BLOOD COUNT 2.5 10*3/uL (4.8-10.8)
[2017-04-23 19:09] LABS: INTERNATIONAL NORM RATIO 1.1 (2.0-3.5)
[2017-04-23 19:15] LABS: ALBUMIN 2.6 gm/dl (3.1-4.5); ALKALINE PHOSPHATASE 108 U/L (45-117); BUN 16 mg/dl (7-24); CHLORIDE 111 mmol/L (98-107); CREATININE 1.42 mg/dL (0.70-1.30); LIPASE 147 U/L (73-393); POTASSIUM 3.9 mmol/L (3.5-5.1); SGOT/AST 35 IU/L (3-35); SGPT/ALT 20 U/L (12-78); SODIUM 144 mmol/L (136-145); TOTAL PROTEIN 7.6 gm/dL (6.4-8.2)
[2017-04-23 19:16] LABS: TROPONIN I < 0.015 ng/ml (<0.045)
[2017-04-23 20:31] LABS: BILIRUBIN NEGATIVE (NEGATIVE); BLOOD NEGATIVE (NEGATIVE); CLARITY CLEAR (CLEAR); COLOR YELLOW (YELLOW); GLUCOSE NEGATIVE (NEGATIVE); KETONE TRACE (NEGATIVE); LEUKO ESTERASE NEGATIVE (NEGATIVE); NITRITE NEGATIVE (NEGATIVE); PH 5.5 (5.0-9.0); SPECIFIC GRAVITY 1.025 (1.005-1.030); UROBILINOGEN 0.2 E.U./dl (0.2-1.0)
[2017-04-23 20:45] LABS: BACTERIA TRACE; EPITHELIAL CELLS 0-2
[2017-04-23 20:47] VITALS: BP 148/65
--- NOTE | 2017-04-23 21:18 | NUR ---
A 86, admitted to 5E, under the services of MERA Trejo DO with a diagnosis of ACUTE HEPATIC ENCEPHALOPATHY. Chief complaint is CONFUSION. Patient arrived via ambulatory from ER. Monitor applied. Initial assessment completed. Vital signs taken and recorded. MERA TREJO DO notified of admission to the unit. Orders received. See assessment for past medical history, medications and allergies. Patient and/or family oriented to unit. [facility] visitation policy reviewed. Clothing/patient valuable form completed. JONATHAN GONZALEZ
--- NOTE | 2017-04-23 21:20 | NUR ---
MEDICATIONS VERIFIED WITH FAMILY
[2017-04-24] VITALS: BP 140/52
[2017-04-24 06:11] LABS: ALBUMIN 2.3 gm/dl (3.1-4.5); ALKALINE PHOSPHATASE 94 U/L (45-117); BUN 14 mg/dl (7-24); CHLORIDE 113 mmol/L (98-107); CREATININE 1.15 mg/dL (0.70-1.30); MAGNESIUM 1.6 mg/dL (1.5-2.1); POTASSIUM 3.8 mmol/L (3.5-5.1); SGOT/AST 29 IU/L (3-35); SGPT/ALT 17 U/L (12-78); SODIUM 144 mmol/L (136-145); TOTAL PROTEIN 6.8 gm/dL (6.4-8.2)
--- NOTE | 2017-04-24 06:44 | NUR ---
NOTIFIED PHYSICIAN OF CRITICAL HIGH AMONIA LEVEL ON PT. ORDERS RECIEVED TO GIVE 30G LACTULOSE IF PT HAS NOT MOVED MICHAEL IN ONE HOUR. WILL CONTINUE TO MONITOR PT.
[2017-04-24 06:45] LABS: HEMATOCRIT 25.1 % (42.0-52.0); HEMOGLOBIN 7.8 g/dl (14.0-18.0); MEAN CELL VOLUME 81.2 fl (80.0-94.0); MEAN CORPUSCULAR HGB 25.2 pg (27.0-31.0); MEAN CORPUSCULAR HGB CONC 31.1 g/dl (33.0-37.0); MEAN PLATELET VOLUME 9.3 fl (9.6-12.3); PLATELET COUNT AUTOMATED 54 10*3/uL (130-400); RED BLOOD COUNT 3.09 10*6/uL (4.50-5.90); RED CELL DISTRI WIDTH 18.8 % (0-14.5)
[2017-04-24 06:51] LABS: BASOPHILS 1 % (0-1); PLATELET SUFFICIENCY LOW (NORMAL); POLYCHROMASIA SLIGHT; TOTAL CELLS COUNTED 100 #CELLS
[2017-04-24 06:52] LABS: WHITE BLOOD COUNT 1.8 10*3/uL (4.8-10.8)
--- NOTE | 2017-04-24 07:02 | NUR ---
SPOKE WITH DR. GUTHRIE REGARDING CRITICAL WBC. NO ORDERS AT THIS TIME
[2017-04-24 08:00] VITALS: BP 154/57
--- NOTE | 2017-04-24 08:00 | NUR ---
SLEEPING QUIETLY, AWAKENS EASILY. ALERT AND ORIENTED WHEN AWAKE. SEE SHIFT ASSESSMENT.
--- NOTE | 2017-04-24 10:00 | NUR ---
UP TO BATHROOM TO HAVE A LARGE LOOSE BM. ALERT AND ORIENTED. NO DISTRESS NOTED.
[2017-04-24 12:00] VITALS: BP 146/63
--- NOTE | 2017-04-24 14:00 | NUR ---
PT HAS HAD 2 MORE BMS THIS SHIFT. REMAINS ALERT AND ORIENTED. NO DISTRESS NOTED.
[2017-04-24 16:00] VITALS: BP 135/55
[2017-04-24 20:00] VITALS: BP 133/70
[2017-04-25] VITALS: BP 131/79
--- NOTE | 2017-04-25 00:50 | NUR ---
24 HR chart check completed.
[2017-04-25 06:25] LABS: EOS # 0.2 10*3/uL (0.0-0.4); EOS % 9.9 % (1.0-4.0); HEMATOCRIT 26.6 % (42.0-52.0); HEMOGLOBIN 8.2 g/dl (14.0-18.0); LYMPH # 0.4 10*3/uL (1.3-4.4); LYMPH % 18.8 % (27.0-41.0); MEAN CELL VOLUME 81.3 fl (80.0-94.0); MEAN CORPUSCULAR HGB 25.1 pg (27.0-31.0); MEAN CORPUSCULAR HGB CONC 30.8 g/dl (33.0-37.0); MEAN PLATELET VOLUME 8.4 fl (9.6-12.3); MONO # 0.2 10*3/uL (0.1-1.0); MONO % 8.9 % (3.0-9.0); NEUT # 1.2 10*3/uL (2.3-7.9); NEUT % 60.9 % (47.0-73.0); PLATELET COUNT AUTOMATED 52 10*3/uL (130-400); RED BLOOD COUNT 3.27 10*6/uL (4.50-5.90); RED CELL DISTRI WIDTH 18.7 % (0-14.5)
[2017-04-25 06:53] LABS: BUN 10 mg/dl (7-24); CHLORIDE 113 mmol/L (98-107); CREATININE 1.19 mg/dL (0.70-1.30); MAGNESIUM 1.9 mg/dL (1.5-2.1); POTASSIUM 3.7 mmol/L (3.5-5.1); SODIUM 142 mmol/L (136-145)
[2017-04-25 08:00] VITALS: BP 113/50
[2017-04-25 12:00] VITALS: BP 130/62
--- NOTE | 2017-04-25 13:38 | NUR ---
PHYSICAL THERAPY PAtient evaluated on 5, full evaluation to follow. Continue with PT as per plan of care with fall, acute debility and high ammonia levels from non alcoholic cirrhosis precautions. PAtient interested in home only for d/c planning. Recommend home, with 24/01 family assist and complete home health services. PAtient is moderate complexity via chart review, tests and evaluation: 66520. Thank you for this referral. Sheree Roberts,PT
[2017-04-25] MEDS ORDERED: LACTULOSE20 GM/30 M PO (14:17)
--- NOTE | 2017-04-25 15:13 | NUR ---
Patient being discharged to home with home health via [facility]. Received order, contacted [facility] and faxed referral.
[2017-04-25 16:00] VITALS: BP 156/63
--- NOTE | 2017-04-25 16:53 | NUR ---
Discharge instructions reviewed with patient/family. Patient receptive and verbalizes understanding. Follow-up care arranged. Written instructions given to patient/family. CLAUDIA NAVA
== END 2017-04-25 16:53 | disposition home health service (06) | DRG 441 ==
LOC: ED 18:26 → EDHOLD 19:37 → 5E 19:37
PROVIDERS: Hospitalist; Nurse Practitioner Family; Student in an Organized Health Care Education/Training Program; ADMIT Internal Medicine
DX: K72.00 Acute and subacute hepatic failure without coma (principal); N17.0 Acute kidney failure with tubular necrosis; E43 Unspecified severe protein-calorie malnutrition; D61.818 Other pancytopenia; E72.20 Disorder of urea cycle metabolism, unspecified; I13.0 Hypertensive heart and chronic kidney disease with heart failure and stage 1 through stage 4 chronic kidney disease, or unspecified chronic kidney disease; I50.30 Unspecified diastolic (congestive) heart failure; D72.1 Eosinophilia; E87.8 Other disorders of electrolyte and fluid balance, not elsewhere classified; Z51.5 Encounter for palliative care; R73.9 Hyperglycemia, unspecified; Z66 Do not resuscitate; R91.8 Other nonspecific abnormal finding of lung field; D64.9 Anemia, unspecified; N18.3 Chronic kidney disease, stage 3 (moderate); K74.60 Unspecified cirrhosis of liver; H35.30 Unspecified macular degeneration; I25.2 Old myocardial infarction; Z68.22 Body mass index [BMI] 22.0-22.9, adult; Z79.82 Long term (current) use of aspirin; Z86.73 Personal history of transient ischemic attack (TIA), and cerebral infarction without residual deficits; Z87.81 Personal history of (healed) traumatic fracture; Z90.49 Acquired absence of other specified parts of digestive tract; Z90.5 Acquired absence of kidney

== ENCOUNTER 2017-05-04 08:15 | Inpatient (IN) | payer OTHER ==
[~2017-05-04] VITALS: Ht 213.3 cm; Wt 70.3 kg
[2017-05-04] VITALS: BP 156/51
[2017-05-04 08:38] VITALS: BP 132/53
--- NOTE | 2017-05-04 08:45 | NUR ---
Time: 844 A 86 year old MALE admitted to under services of MERA TREJO DO, Pt. arrived via wheel chair from ID. Chief complaint: HEPATIC ENCEPHALOPATHY. MAAME ZAMORA
[2017-05-04] MEDS ORDERED: LACTULOSE20 GM/30 M PO (08:56)
[2017-05-04] MEDS ORDERED: ALDACTONE25 M1 PO (08:57)
--- NOTE | 2017-05-04 09:10 | NUR ---
FAMILY STATES PT DON'T WANT SARAH HOSE APPLIED. PT HAS MULTIPLE SCAB AREAS ON CHEST AND LEGS FROM SCRATCHING PER FAMILY.
--- NOTE | 2017-05-04 09:10 | NUR ---
DR. BRADLEY IN TO SEE PT. FAMILY AT HIS SIDE.
[2017-05-04 09:13] LABS: EOS # 0.2 10*3/uL (0.0-0.4); EOS % 7.9 % (1.0-4.0); HEMOGLOBIN 8.1 g/dl (14.0-18.0); LYMPH # 0.3 10*3/uL (1.3-4.4); LYMPH % 16.8 % (27.0-41.0); MEAN CELL VOLUME 80.7 fl (80.0-94.0); MEAN CORPUSCULAR HGB 25.2 pg (27.0-31.0); MEAN CORPUSCULAR HGB CONC 31.2 g/dl (33.0-37.0); MEAN PLATELET VOLUME 9.5 fl (9.6-12.3); MONO # 0.2 10*3/uL (0.1-1.0); MONO % 8.4 % (3.0-9.0); NEUT # 1.3 10*3/uL (2.3-7.9); NEUT % 65.4 % (47.0-73.0); PLATELET COUNT AUTOMATED 55 10*3/uL (130-400); RED BLOOD COUNT 3.22 10*6/uL (4.50-5.90); RED CELL DISTRI WIDTH 18.4 % (0-14.5)
[2017-05-04 09:27] LABS: ALBUMIN 2.5 gm/dl (3.1-4.5); ALKALINE PHOSPHATASE 98 U/L (45-117); BUN 13 mg/dl (7-24); CHLORIDE 109 mmol/L (98-107); CREATININE 1.32 mg/dL (0.70-1.30); PHOSPHOROUS 2.4 mg/dL (2.5-4.9); POTASSIUM 3.8 mmol/L (3.5-5.1); SGOT/AST 36 IU/L (3-35); SGPT/ALT 22 U/L (12-78); SODIUM 142 mmol/L (136-145); TOTAL PROTEIN 7.4 gm/dL (6.4-8.2)
--- NOTE | 2017-05-04 09:35 | NUR ---
SPOKE WITH DR. BRADLEY REGARDING CRITICAL AMMONIA LAB, NO FURTHER ORDERS AT THIS TIME.
--- NOTE | 2017-05-04 09:50 | NUR ---
PATIENT IS RESTING IN BED. PATIENT IS ORIENTED TO PERSON, PLACE, BUT NOT TIME. PATIENT IS LETHARGIC AND HAS GENERALIZED WEAKNESS AND IS UNSTEADY ON AMBULATION. PATIENT DENIES ANY PAIN OR DISCOMFORT. PATIENT ORIENTED TO ROOM AND CALL LIGHT SYSTEM, SEE SHIFT ASSESSMENT.
--- NOTE | 2017-05-04 12:13 | NUR ---
MEDICATED WITH LACTULOSE PER ORDER, SEE EMAR. ALSO C/O UPSET STOMACH, MEDICATED WITH ZOFRAN IV PER PRN ORDER, SEE EMAR. CALL LIGHT IN REACH.
--- NOTE | 2017-05-04 14:39 | NUR ---
SPOKE WITH AND NOTIFIED THAT PATIENT HAS HAD TWO BOWEL MOVEMENTS. LACTULOSE WILL BE MODIFIED.
--- NOTE | 2017-05-04 15:01 | NUR ---
PATIENT IS RESTING COMFORTABLY IN BED. PATIENT HAS HAD SEVERAL GOOD SIZED BOWEL MOVEMENTS. PATIENT HAS FAMILY AT THE BEDSIDE. PATIENT IS AMBULATORY AND CONTINENT. PATIENT DENIES ANY PAIN OR DISCOMFORT. PATIENT IS A&OX2. HOB ELEVATED. BED ALARM ACTIVATED. SEE SHIFT ASSESSMENT. CALL LIGHT IS WITHIN REACH.
[2017-05-04 16:00] VITALS: BP 111/48
--- NOTE | 2017-05-04 16:08 | NUR ---
NOTIFIED RADIOLOGY TO READ KUB OF ABDOMEN PER MESSAGE.
--- NOTE | 2017-05-04 18:45 | NUR ---
PATIENT IS RESTING COMFORTABLY IN BED. PATIENT HAS FAMILY AT THE BEDSIDE AND SCD'S ARE ON THE PATIENT PER ORDER. PATIENT IS A&O X2, BUT HAS PERIODS OF CONFUSION. PATIENT DENIES ANY PAIN OR DISCOMFORT THROUGHOUT THE SHIFT. PATIENT HAD NO FURTHER REQUESTS AT THIS TIME. CALL LIGHT SYSTEM REINFORCED. SEE SHIFT ASSESSMENT.
[2017-05-04 20:00] VITALS: BP 123/49
[2017-05-05] VITALS: BP 136/58
[2017-05-05 06:41] LABS: HEMATOCRIT 28.2 % (42.0-52.0); HEMOGLOBIN 8.6 g/dl (14.0-18.0); MEAN CELL VOLUME 83.2 fl (80.0-94.0); MEAN CORPUSCULAR HGB 25.4 pg (27.0-31.0); MEAN CORPUSCULAR HGB CONC 30.5 g/dl (33.0-37.0); MEAN PLATELET VOLUME 9.6 fl (9.6-12.3); PLATELET COUNT AUTOMATED 57 10*3/uL (130-400); RED BLOOD COUNT 3.39 10*6/uL (4.50-5.90); RED CELL DISTRI WIDTH 18.6 % (0-14.5)
[2017-05-05 07:06] LABS: TOTAL CELLS COUNTED 100 #CELLS
[2017-05-05 07:07] LABS: PLATELET SUFFICIENCY LOW (NORMAL); POLYCHROMASIA SLIGHT
[2017-05-05 07:41] LABS: CREATININE 1.47 mg/dL (0.70-1.30); POTASSIUM 3.9 mmol/L (3.5-5.1)
[2017-05-05 08:00] VITALS: BP 126/60
--- NOTE | 2017-05-05 08:00 | NUR ---
HOB ELEVATED, EASY RESPIRATIONS WITH SKIN W/D. PT ALERT WITH PERIODS OF CONFUSION. FOLLOWS SIMPLE COMMANDS EASILY. BEDALARM IN USE FOR PT SAFETY. MULTIPLE SCABBED AREAS NOTED ON BODY, JOHN PEACOCK VIEWED THESE AREAS. SEE SHIFT ASSESSMENT.
--- NOTE | 2017-05-05 09:00 | NUR ---
[employer] Officer in to talk to patient. Patient states lives at home with alone. There are few steps in the home. Physician: yolis jean Pharmacy: [facility] health services: none Patient's level of ADLs: INDEPENDENT Patient has working utilities: all working DME: none Follow-up physician's appointment after d/c: will be made by hospitalist nurse director upon discharge Does patient want to access PORTAL?: no Discharge plan discussed with patient, patient lives at home, is independent in adls and ambulation, patient states he will be going back home and denies any home needs. DAVE CARDENAS
--- NOTE | 2017-05-05 10:22 | NUR ---
RESTING WITH SON AT BEDSIDE.
[2017-05-05 12:00] VITALS: BP 115/53
[2017-05-05 16:00] VITALS: BP 113/41
[2017-05-05 20:00] VITALS: BP 123/83
[2017-05-05 22:33] LABS: BILIRUBIN NEGATIVE (NEGATIVE); BLOOD TRACE-INTACT (NEGATIVE); CLARITY CLEAR (CLEAR); COLOR YELLOW (YELLOW); GLUCOSE NEGATIVE (NEGATIVE); KETONE TRACE (NEGATIVE); LEUKO ESTERASE NEGATIVE (NEGATIVE); NITRITE NEGATIVE (NEGATIVE); PH 5.5 (5.0-9.0); SPECIFIC GRAVITY >= 1.030 (1.005-1.030); UROBILINOGEN 0.2 E.U./dl (0.2-1.0)
[2017-05-05 22:50] LABS: BACTERIA 1+; CALCIUM OXALATE CRYSTALS 2+
[2017-05-06] VITALS: BP 127/48
[2017-05-06 08:00] VITALS: BP 120/44
--- NOTE | 2017-05-06 08:00 | NUR ---
HOB ELEVATED, EASY RESPIRATIONS WITH SKIN W/D. PT ANSWERS ASSESSMENT QUESTIONS APPROPRIATELY, FOLLOWS SIMPLE COMMANDS EASILY. BEDALARM MAINTAINED FOR PT SAFETY. SEE SHIFT ASSESSMENT.
--- NOTE | 2017-05-06 10:54 | NUR ---
DR HWANG IN TO SEE PT.
[2017-05-06] MEDS ORDERED: XIFAXAN200 M1 PO (11:44)
[2017-05-06] MEDS ORDERED: LACTULOSE20 GM/30 M PO (11:44)
[2017-05-06 12:00] VITALS: BP 120/45
--- NOTE | 2017-05-06 12:36 | NUR ---
Discharge instructions reviewed with patient/family. Patient receptive and verbalizes understanding. Written instructions given to patient/family. SHREE SALMERON
== END 2017-05-06 12:31 | disposition home or self-care (01) | DRG 441 ==
LOC: 5E 08:15
PROVIDERS: Hospitalist; ADMIT Internal Medicine
DX: K72.00 Acute and subacute hepatic failure without coma (principal); E43 Unspecified severe protein-calorie malnutrition; N17.0 Acute kidney failure with tubular necrosis; I21.4 Non-ST elevation (NSTEMI) myocardial infarction; D61.818 Other pancytopenia; D72.1 Eosinophilia; E87.8 Other disorders of electrolyte and fluid balance, not elsewhere classified; I13.0 Hypertensive heart and chronic kidney disease with heart failure and stage 1 through stage 4 chronic kidney disease, or unspecified chronic kidney disease; I50.30 Unspecified diastolic (congestive) heart failure; E83.39 Other disorders of phosphorus metabolism; K74.60 Unspecified cirrhosis of liver; R91.8 Other nonspecific abnormal finding of lung field; N18.3 Chronic kidney disease, stage 3 (moderate); D73.1 Hypersplenism; H35.30 Unspecified macular degeneration; Z66 Do not resuscitate; I25.2 Old myocardial infarction; Z51.5 Encounter for palliative care; Z86.73 Personal history of transient ischemic attack (TIA), and cerebral infarction without residual deficits; Z90.49 Acquired absence of other specified parts of digestive tract; Z90.5 Acquired absence of kidney; Z79.82 Long term (current) use of aspirin; Z79.899 Other long term (current) drug therapy; Z68.21 Body mass index [BMI] 21.0-21.9, adult

== ENCOUNTER → 2017-05-10 | Outpatient (CLI) | payer OTHER ==
[~2017-05-10] MED LIST changes: +ALDACTONE25 M1 PO; +XIFAXAN200 M1 PO
== END | disposition home or self-care (01) ==
LOC: RESCLI 01:31
DX: G93.41 Metabolic encephalopathy (principal); I13.0 Hypertensive heart and chronic kidney disease with heart failure and stage 1 through stage 4 chronic kidney disease, or unspecified chronic kidney disease; N18.3 Chronic kidney disease, stage 3 (moderate); I50.32 Chronic diastolic (congestive) heart failure; D69.6 Thrombocytopenia, unspecified; K72.90 Hepatic failure, unspecified without coma

== ENCOUNTER → 2017-06-14 | Outpatient (CLI) | payer OTHER ==
[2017-06-14 15:53] LABS: BASO % 0.4 % (0.0-1.0); EOS # 0.2 10*3/uL (0.0-0.4); EOS % 8.7 % (1.0-4.0); HEMATOCRIT 25.1 % (42.0-52.0); HEMOGLOBIN 7.8 g/dl (14.0-18.0); LYMPH # 0.4 10*3/uL (1.3-4.4); LYMPH % 18.3 % (27.0-41.0); MEAN CORPUSCULAR HGB 25.2 pg (27.0-31.0); MEAN CORPUSCULAR HGB CONC 31.1 g/dl (33.0-37.0); MEAN PLATELET VOLUME 8.5 fl (9.6-12.3); MONO # 0.2 10*3/uL (0.1-1.0); MONO % 9.1 % (3.0-9.0); NEUT # 1.5 10*3/uL (2.3-7.9); NEUT % 63.5 % (47.0-73.0); PLATELET COUNT AUTOMATED 57 10*3/uL (130-400); RED CELL DISTRI WIDTH 17.5 % (0-14.5); WHITE BLOOD COUNT 2.3 10*3/uL (4.8-10.8)
== END | disposition home or self-care (01) ==
LOC: LAB 14:43
PROVIDERS: Internal Medicine Hematology & Oncology
DX: D61.818 Other pancytopenia (principal)

== ENCOUNTER 2017-06-29 13:31 | Inpatient (IN) | payer OTHER ==
[~2017-06-29] VITALS: Ht 182.9 cm; Wt 74.1 kg
--- NOTE | ~2017-06-29 | EKG ---
[place], [place] ELECTROCARDIOGRAM REPORT NAME: JUSTIN FRITZ UNIT #: [id number] ROOM: 524 DOCTOR: MAGALY KNOX,TIMA BIRTHDATE: [birth year] DOS: 06/29/2017 TIME: 1441 hours IMPRESSION: 1. Sinus rhythm. 2. Borderline low voltage complexes in the limb leads. 3. Normal QT intervals. 4. No ST-T changes. TIMA MCKENZIE MD CM:EKGRPT:ELECTROCARDIOGRAM REPORT [id number] TIMA MCKENZIE MD
[2017-06-29 13:49] VITALS: BP 129/53
[2017-06-29 14:30] LABS: BASO % 1.2 % (0.0-1.0); EOS # 0.2 10*3/uL (0.0-0.4); EOS % 8.3 % (1.0-4.0); HEMATOCRIT 26.7 % (42.0-52.0); HEMOGLOBIN 8.1 g/dl (14.0-18.0); LYMPH # 0.4 10*3/uL (1.3-4.4); LYMPH % 15.8 % (27.0-41.0); MEAN CELL VOLUME 80.9 fl (80.0-94.0); MEAN CORPUSCULAR HGB 24.5 pg (27.0-31.0); MEAN CORPUSCULAR HGB CONC 30.3 g/dl (33.0-37.0); MEAN PLATELET VOLUME 8.9 fl (9.6-12.3); MONO # 0.2 10*3/uL (0.1-1.0); MONO % 7.9 % (3.0-9.0); NEUT # 1.6 10*3/uL (2.3-7.9); NEUT % 66.4 % (47.0-73.0); PLATELET COUNT AUTOMATED 59 10*3/uL (130-400); RED CELL DISTRI WIDTH 17.2 % (0-14.5); WHITE BLOOD COUNT 2.4 10*3/uL (4.8-10.8)
[2017-06-29 14:45] LABS: ACT PARTIAL THROMBO TIME 30.7 SECONDS (20.8-31.5); INTERNATIONAL NORM RATIO 1.2 (2.0-3.5)
[2017-06-29 14:46] LABS: ALBUMIN 2.6 gm/dl (3.1-4.5); ALKALINE PHOSPHATASE 99 U/L (45-117); BUN 13 mg/dl (7-24); CHLORIDE 111 mmol/L (98-107); CREATININE 1.42 mg/dL (0.70-1.30); LIPASE 133 U/L (73-393); POTASSIUM 3.7 mmol/L (3.5-5.1); SGOT/AST 34 IU/L (3-35); SGPT/ALT 22 U/L (12-78); SODIUM 144 mmol/L (136-145)
[2017-06-29 14:47] LABS: TROPONIN I < 0.015 ng/ml (<0.045)
[2017-06-29 15:21] VITALS: BP 126/60
[2017-06-29 15:52] LABS: BILIRUBIN NEGATIVE (NEGATIVE); BLOOD TRACE-LYSED (NEGATIVE); CLARITY CLEAR (CLEAR); COLOR YELLOW (YELLOW); GLUCOSE NEGATIVE (NEGATIVE); KETONE NEGATIVE (NEGATIVE); LEUKO ESTERASE NEGATIVE (NEGATIVE); NITRITE NEGATIVE (NEGATIVE); PH 5.5 (5.0-9.0); SPECIFIC GRAVITY 1.025 (1.005-1.030); UROBILINOGEN 0.2 E.U./dl (0.2-1.0)
[2017-06-29 16:06] LABS: BACTERIA 2+; EPITHELIAL CELLS 0-2; WBC 0-2 wbc/hpf (0-5)
[2017-06-29 17:43] VITALS: BP 142/52
[2017-06-29 20:00] VITALS: BP 136/58
[2017-06-30] VITALS: BP 128/53
[2017-06-30 06:27] LABS: HEMATOCRIT 24.8 % (42.0-52.0); HEMOGLOBIN 7.5 g/dl (14.0-18.0); MEAN CELL VOLUME 81.8 fl (80.0-94.0); MEAN CORPUSCULAR HGB 24.8 pg (27.0-31.0); MEAN CORPUSCULAR HGB CONC 30.2 g/dl (33.0-37.0); MEAN PLATELET VOLUME 9.2 fl (9.6-12.3); PLATELET COUNT AUTOMATED 48 10*3/uL (130-400); RED BLOOD COUNT 3.03 10*6/uL (4.50-5.90); RED CELL DISTRI WIDTH 17.1 % (0-14.5)
[2017-06-30 07:00] LABS: ALBUMIN 2.3 gm/dl (3.1-4.5); BUN 14 mg/dl (7-24); CHLORIDE 110 mmol/L (98-107); CREATININE 1.21 mg/dL (0.70-1.30); POTASSIUM 3.8 mmol/L (3.5-5.1); SGOT/AST 28 IU/L (3-35); SGPT/ALT 18 U/L (12-78); SODIUM 143 mmol/L (136-145)
[2017-06-30 07:01] LABS: ALKALINE PHOSPHATASE 78 U/L (45-117)
[2017-06-30 07:20] LABS: TOTAL CELLS COUNTED 100 #CELLS
[2017-06-30 07:21] LABS: PLATELET SUFFICIENCY LOW (NORMAL); POLYCHROMASIA SLIGHT
[2017-06-30 07:25] LABS: WHITE BLOOD COUNT 1.5 10*3/uL (4.8-10.8)
[2017-06-30 08:00] VITALS: BP 124/52
[2017-06-30] MEDS ORDERED: LACTULOSE20 GM/30 M PO (12:51)
== END 2017-06-30 14:00 | disposition home or self-care (01) | DRG 640 ==
LOC: ED 13:31 → EDHOLD 16:45 → 5E 16:45
PROVIDERS: Emergency Medicine; Internal Medicine
DX: E86.0 Dehydration (principal); G93.41 Metabolic encephalopathy; E43 Unspecified severe protein-calorie malnutrition; D69.6 Thrombocytopenia, unspecified; D70.9 Neutropenia, unspecified; E87.8 Other disorders of electrolyte and fluid balance, not elsewhere classified; I50.32 Chronic diastolic (congestive) heart failure; D64.9 Anemia, unspecified; I13.0 Hypertensive heart and chronic kidney disease with heart failure and stage 1 through stage 4 chronic kidney disease, or unspecified chronic kidney disease; Z68.45 Body mass index [BMI] 70 or greater, adult; Z66 Do not resuscitate; K74.60 Unspecified cirrhosis of liver; Z51.5 Encounter for palliative care; N18.3 Chronic kidney disease, stage 3 (moderate); R82.71 Bacteriuria; H35.30 Unspecified macular degeneration; R70.0 Elevated erythrocyte sedimentation rate; Z79.899 Other long term (current) drug therapy; Z79.82 Long term (current) use of aspirin; Z86.73 Personal history of transient ischemic attack (TIA), and cerebral infarction without residual deficits; I25.2 Old myocardial infarction; Z90.49 Acquired absence of other specified parts of digestive tract; Z90.5 Acquired absence of kidney

== ENCOUNTER 2017-08-04 11:32 | Inpatient (IN) | payer OTHER ==
[~2017-08-04] VITALS: Ht 182.8 cm; Wt 71.3 kg
--- NOTE | ~2017-08-04 | CON ---
[place], [place] REPORT OF CONSULTATION NAME: JUSTIN FRITZ [facility] #: [id number] UNIT #: [id number] ROOM: 422 DOCTOR: YONNY MA MD BIRTHDATE: [birth year] DOS: 08/05/2017 HISTORY OF PRESENT ILLNESS: The patient is a pleasant 87-year-old gentleman who was initially seen at Dr. Ovalle's office because of acute confusion. He has a PMH of GRACIA and was on lactulose. His last ammonia level on Tuesday was 57. His daughter increased the lactulose dose to 40 mg t.i.d., but subsequently was concerned because of increased debility and ____ urine. On routine CBC, he was found to be pancytopenic and consulted for further evaluation and management. PAST MEDICAL HISTORY: Significant for diastolic heart failure, chronic kidney disease, elevated ESR, history of CVA, hypersplenism, hypertension, lung mass, macular degeneration, nonalcoholic cirrhosis, and non-ST elevated myocardial infarction. PAST SURGICAL HISTORY: Inguinal hernia repair, unilateral nephrectomy, right-sided nephrectomy, history of appendectomy, cholecystectomy, and ventral hernia. SOCIAL HISTORY: No smoking, drinking or drug abuse. FAMILY HISTORY: Father of unknown cause at age 70. Mother of unknown cause at 70. ALLERGIES: No allergies. MEDICATIONS: Aspirin, lactulose, Lutein, omega, rifaximin, and spironolactone. REVIEW OF SYSTEMS: CONSTITUTIONAL: No chills. No fatigue. No fever. No loss of appetite. No night sweats. No weakness. No weight loss. HEENT: No trouble swallowing. No loss of smell. No loss of hearing. No double vision. No pain. No discharge. ENT AND RESPIRATORY: No wheeze. No sore throat. No change in voice. No hearing loss. No nose bleed. No cough. No trouble breathing through nose. No shortness of breath. No coughing up blood. No epistaxis. CARDIOVASCULAR: No chest pain. No dizziness. No irregular heartbeat. No leg edema. No pain in legs while walking. No palpitations. No shortness of breath. DERMATOLOGIC: No acne. No hives. No laceration. No mole. No rash. ENDOCRINE: No cold intolerance. No diabetes. No fatigue. No hot flashes. No polydipsia. No polyuria. No urinating frequently. No weight loss. HEMATOLOGIC AND LYMPH: No fatigue. No easy bruising. GASTROENTEROLOGIC: No change in bowel habits. No indigestion. No frequent bloating. No vomiting blood. No abdominal cramping. No nausea. No heartburn. No vomiting. No abdominal pain. No dysphagia. No diarrhea. No constipation. No blood in stool. MALE REPRODUCTIVE: No testicular pain. No difficulty with erection. No diminished sexual drive. No penile discharge. MUSCULOSKELETAL: No back pain. No muscle pain or weakness. No neck pain. No tingling/numbness. No swelling/bruising. No osteoporosis treatment. [place], [place] REPORT OF CONSULTATION NAME: JUSTIN FRITZ UNIT #: [id number] ROOM: [facility] DOCTOR: YONNY MA MD BIRTHDATE: [birth year] OPHTHALMOLOGIC: No double vision. No diminished vision. No loss of vision. UROLOGIC: No dysuria. No frequent nighttime urination. No pain with urination. No difficulty urinating. No blood in urine. No frequent urination. No urinary incontinence. NEUROLOGIC: No loss of sensation in specific body area. No vertigo. No burning pain in feet. No trouble with balance. No trouble with coordination. No loss of consciousness. No loss of feeling/power. No confusion. No headache. No tingling/numbness. PSYCHOLOGIC: No tinnitus. No headaches. No shortness of breath. No weight decrease. No nausea. No vomiting. No abdominal discomfort. No constipation. No diarrhea. No depression. No anxiety. PHYSICAL EXAMINATION: VITAL SIGNS: Stable, afebrile. GENERAL: A pleasant gentleman, in no acute distress. HEENT: Oral mucosa appears intact. The external ears are normal in appearance. Nares are patent without lesions, exudates, erythema, or inflammation. Tongue is symmetrical. Uvula is midline. NECK AND THYROID: Neck supple without palpable masses. Trachea is midline. No thyromegaly. No carotid bruit or JVD. BREASTS: Normal. Nipples unremarkable. No drainage. No lumps felt on either side. HEART: Normal S1, S2, without significant murmur, rub, or gallop. LUNGS: Clear to auscultation and percussion with good air entry bilaterally. The patient is breathing easily without the use of accessory muscles. Diaphragmatic excursions are intact. ABDOMEN: No costovertebral angle tenderness. Soft. No organomegaly or masses. Nontender. No hernias present. Liver and spleen are not palpable. LYMPHATIC: No adenopathy noted in the cervical, supraclavicular, axillary, or inguinal regions. NEUROLOGIC: Nonfocal. Oriented to person, place, and time. MENTAL STATUS: Appropriate for mood and affect. PERIPHERAL PULSES: No varicosities. Femoral and pedal pulses are palpable. EXTREMITIES: Without cyanosis, clubbing, or edema. No gross anomalies. LABORATORY DATA: Sodium of 144, potassium 4.2, chloride 111, bicarbonate 29, AST 37, ALT 21. White count of 2.3, hemoglobin 7.3, hematocrit 24.1, platelet of 53,000 with ANC of 1400. ASSESSMENT: 1. 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 2. Nonalcoholic cirrhosis. 3. Thrombocytopenia. 4. Chronic kidney disease. PLAN: His counts are stable. We will keep a close watch at this time. I will review peripheral smears old records. If he continues to go down, then further intervention. We will follow. Thanks for consulting and letting me participate in the care of this interesting [place], [place] REPORT OF CONSULTATION NAME: JUSTIN FRITZ UNIT #: [id number] ROOM: 422 DOCTOR: YONNY MA MD BIRTHDATE: [birth year] patient. YONNY MA MD CM:CONSTR:REPORT OF CONSULTATION 1512 08/06/17 0026 interface
--- NOTE | ~2017-08-04 | PR ---
[place], [place] PROGRESS NOTE NAME: JUSTIN FRITZ [facility] #: [id number] UNIT #: [id number] ROOM: 422 DOCTOR: YONNY MA MD BIRTHDATE: [birth year] DOS: 08/06/2017 SUBJECTIVE: The patient is doing better. He is awake, alert and responsive. REVIEW OF SYSTEMS HEENT: No trouble swallowing. No double vision. No loss of vision. No pain. ENT AND RESPIRATORY: No wheeze. No change in voice. No cough. No shortness of breath. No coughing up blood. No epistaxis. CARDIOLOGIC: No chest pain. No dizziness. No irregular heartbeat. No leg edema. No palpitations. No shortness of breath. HEMATOLOGIC AND LYMPH: No past transfusion. No fatigue. No loss of appetite. No easy bruising. GASTROENEROLOGIC: No change in bowel habits. No vomiting blood. No abdominal cramping. No nausea. No vomiting. No diarrhea. No constipation. No blood in stool. MALE REPRODUCTIVE: No testicular pain. No penile discharge. MUSCULOSKELETAL: No back pain. No muscle pain or weakness. No tingling/numbness. UROLOGIC: No pain with urination. No difficulty urinating. No frequent urination. NEUROLOGIC: No burning pain in feet. No trouble with coordination. No loss of consciousness. No headache. No tingling/numbness. No memory loss. PHYSICAL EXAMINATION GENERAL: Pleasant gentleman in no apparent distress. VITAL SIGNS: Stable, afebrile. HEENT: Normocephalic, atraumatic NECK AND THYROID: Supple. No JVD, thyromegaly, or lymphadenopathy. HEART: Normal S1, S2. Regular rate and rhythm. LUNGS: Clear to auscultation and percussion. ABDOMEN: Soft. Nontender, nondistended. Bowel sounds present. EXTREMITIES: Normal ROM. No clubbing. No edema. LABORATORY DATA: White count of 1.9, hemoglobin of 7.4, hematocrit 25.0, platelet count of 50,000. ASSESSMENT: 1. Pancytopenia probably secondary to cirrhosis. 2. Nonalcoholic cirrhosis. 3. Chronic kidney disease. PLAN: His white count is low, but his ANC in decent number we will just keep a close watch at this time, if it starts dropping, then intervention. If his hemoglobin and hematocrit drops or platelet drop, then transfusion, otherwise keep a watch. Discussed with the patient in detail. [place], [place] PROGRESS NOTE NAME: JUSTIN FRITZ Jose UNIT #: [id number] ROOM: [facility] DOCTOR: YONNY MA MD BIRTHDATE: [birth year] YONNY MA MD CM:PNTRANS [id number] YONNY MA MD 08/06/17 2353 interface
[2017-08-04 11:45] VITALS: BP 128/65
[2017-08-04] MEDS ORDERED: CONSTULOSE10 GM/151 PO (12:30)
[2017-08-04] MEDS ORDERED: XIFAXAN200 M1 PO (12:34)
[2017-08-04 12:53] LABS: BASO % 0.4 % (0.0-1.0); EOS # 0.2 10*3/uL (0.0-0.4); EOS % 10.1 % (1.0-4.0); HEMATOCRIT 24.1 % (42.0-52.0); HEMOGLOBIN 7.3 g/dl (14.0-18.0); LYMPH # 0.4 10*3/uL (1.3-4.4); LYMPH % 17.6 % (27.0-41.0); MEAN CELL VOLUME 80.6 fl (80.0-94.0); MEAN CORPUSCULAR HGB 24.4 pg (27.0-31.0); MEAN CORPUSCULAR HGB CONC 30.3 g/dl (33.0-37.0); MEAN PLATELET VOLUME 8.5 fl (9.6-12.3); MONO # 0.2 10*3/uL (0.1-1.0); MONO % 10.1 % (3.0-9.0); NEUT # 1.4 10*3/uL (2.3-7.9); NEUT % 61.4 % (47.0-73.0); PLATELET COUNT AUTOMATED 53 10*3/uL (130-400); RED BLOOD COUNT 2.99 10*6/uL (4.50-5.90); RED CELL DISTRI WIDTH 18.2 % (0-14.5); WHITE BLOOD COUNT 2.3 10*3/uL (4.8-10.8)
[2017-08-04 13:11] LABS: ALBUMIN 2.5 gm/dl (3.1-4.5); CREATININE 1.57 mg/dL (0.70-1.30); POTASSIUM 4.2 mmol/L (3.5-5.1); TOTAL PROTEIN 7.2 gm/dL (6.4-8.2)
[2017-08-04 16:00] VITALS: BP 129/58
[2017-08-04 17:23] LABS: BILIRUBIN NEGATIVE (NEGATIVE); BLOOD TRACE-INTACT (NEGATIVE); CLARITY SL CLOUDY (CLEAR); COLOR YELLOW (YELLOW); GLUCOSE NEGATIVE (NEGATIVE); KETONE NEGATIVE (NEGATIVE); LEUKO ESTERASE NEGATIVE (NEGATIVE); NITRITE NEGATIVE (NEGATIVE); UROBILINOGEN 0.2 E.U./dl (0.2-1.0)
[2017-08-04 17:32] LABS: BACTERIA 1+; EPITHELIAL CELLS 0-2; WBC 0-2 wbc/hpf (0-5)
[2017-08-04 20:02] VITALS: BP 131/46
[2017-08-05] VITALS: BP 134/59
[2017-08-05 08:00] VITALS: BP 126/50
[2017-08-05 12:00] VITALS: BP 128/85
[2017-08-05 12:20] LABS: HEMATOCRIT 23.7 % (42.0-52.0); HEMOGLOBIN 7.1 g/dl (14.0-18.0); MEAN CELL VOLUME 81.4 fl (80.0-94.0); MEAN CORPUSCULAR HGB 24.4 pg (27.0-31.0); MEAN PLATELET VOLUME 9.6 fl (9.6-12.3); PLATELET COUNT AUTOMATED 56 10*3/uL (130-400); RED BLOOD COUNT 2.91 10*6/uL (4.50-5.90); RED CELL DISTRI WIDTH 18.2 % (0-14.5)
[2017-08-05 12:30] LABS: WHITE BLOOD COUNT 1.7 10*3/uL (4.8-10.8)
[2017-08-05 12:39] LABS: ALBUMIN 2.3 gm/dl (3.1-4.5); CREATININE 1.45 mg/dL (0.70-1.30); TOTAL PROTEIN 7.2 gm/dL (6.4-8.2)
[2017-08-05 12:43] LABS: ACT PARTIAL THROMBO TIME 31.1 SECONDS (20.8-31.5); INTERNATIONAL NORM RATIO 1.2 (2.0-3.5)
[2017-08-05 12:45] LABS: BASOPHILS 1 % (0-1); PLATELET SUFFICIENCY LOW (NORMAL); POLYCHROMASIA SLIGHT; TOTAL CELLS COUNTED 100 #CELLS
[2017-08-05 16:00] VITALS: BP 122/53
[2017-08-05 20:00] VITALS: BP 130/65; BP 134/59
[2017-08-06 06:31] LABS: HEMOGLOBIN 7.4 g/dl (14.0-18.0); MEAN CELL VOLUME 81.7 fl (80.0-94.0); MEAN CORPUSCULAR HGB 24.2 pg (27.0-31.0); MEAN CORPUSCULAR HGB CONC 29.6 g/dl (33.0-37.0); MEAN PLATELET VOLUME 8.5 fl (9.6-12.3); PLATELET COUNT AUTOMATED 50 10*3/uL (130-400); RED BLOOD COUNT 3.06 10*6/uL (4.50-5.90); RED CELL DISTRI WIDTH 18.3 % (0-14.5)
[2017-08-06 06:45] LABS: ALBUMIN 2.3 gm/dl (3.1-4.5); CREATININE 1.36 mg/dL (0.70-1.30); TOTAL PROTEIN 7.1 gm/dL (6.4-8.2)
[2017-08-06 07:04] LABS: PLATELET SUFFICIENCY LOW (NORMAL); POLYCHROMASIA SLIGHT; TOTAL CELLS COUNTED 100 #CELLS
[2017-08-06 07:05] LABS: ROULEAUX SLIGHT
[2017-08-06 07:07] LABS: WHITE BLOOD COUNT 1.9 10*3/uL (4.8-10.8)
[2017-08-06 08:00] VITALS: BP 116/50
[2017-08-06 16:00] VITALS: BP 110/42
[2017-08-06 20:00] VITALS: BP 152/58
[2017-08-07 07:07] LABS: BASO % 1.3 % (0.0-1.0); EOS # 0.2 10*3/uL (0.0-0.4); EOS % 10.7 % (1.0-4.0); HEMATOCRIT 24.8 % (42.0-52.0); HEMOGLOBIN 7.5 g/dl (14.0-18.0); LYMPH # 0.4 10*3/uL (1.3-4.4); LYMPH % 18.3 % (27.0-41.0); MEAN CELL VOLUME 81.3 fl (80.0-94.0); MEAN CORPUSCULAR HGB 24.6 pg (27.0-31.0); MEAN CORPUSCULAR HGB CONC 30.2 g/dl (33.0-37.0); MEAN PLATELET VOLUME 8.7 fl (9.6-12.3); MONO # 0.2 10*3/uL (0.1-1.0); MONO % 8.5 % (3.0-9.0); NEUT # 1.4 10*3/uL (2.3-7.9); NEUT % 61.2 % (47.0-73.0); PLATELET COUNT AUTOMATED 55 10*3/uL (130-400); RED BLOOD COUNT 3.05 10*6/uL (4.50-5.90); RED CELL DISTRI WIDTH 18.3 % (0-14.5); WHITE BLOOD COUNT 2.2 10*3/uL (4.8-10.8)
[2017-08-07 07:27] LABS: ALBUMIN 2.3 gm/dl (3.1-4.5); CREATININE 1.48 mg/dL (0.70-1.30); POTASSIUM 3.9 mmol/L (3.5-5.1)
[2017-08-07 07:28] LABS: PHOSPHOROUS 2.4 mg/dL (2.5-4.9); TOTAL PROTEIN 7.3 gm/dL (6.4-8.2)
[2017-08-07 08:00] VITALS: BP 114/48
[2017-08-07 16:00] VITALS: BP 124/72
[2017-08-08] VITALS: BP 138/62
[2017-08-08 05:51] LABS: BASO % 0.4 % (0.0-1.0); EOS # 0.3 10*3/uL (0.0-0.4); EOS % 10.1 % (1.0-4.0); HEMATOCRIT 24.4 % (42.0-52.0); HEMOGLOBIN 7.3 g/dl (14.0-18.0); LYMPH # 0.6 10*3/uL (1.3-4.4); LYMPH % 21.4 % (27.0-41.0); MEAN CELL VOLUME 80.5 fl (80.0-94.0); MEAN CORPUSCULAR HGB 24.1 pg (27.0-31.0); MEAN CORPUSCULAR HGB CONC 29.9 g/dl (33.0-37.0); MEAN PLATELET VOLUME 9.1 fl (9.6-12.3); MONO # 0.2 10*3/uL (0.1-1.0); MONO % 7.8 % (3.0-9.0); NEUT # 1.5 10*3/uL (2.3-7.9); NEUT % 59.9 % (47.0-73.0); PLATELET COUNT AUTOMATED 52 10*3/uL (130-400); RED BLOOD COUNT 3.03 10*6/uL (4.50-5.90); RED CELL DISTRI WIDTH 17.9 % (0-14.5); WHITE BLOOD COUNT 2.6 10*3/uL (4.8-10.8)
[2017-08-08 08:00] VITALS: BP 117/44
[2017-08-08 12:00] VITALS: BP 115/73
[2017-08-08 16:00] VITALS: BP 117/54
[2017-08-08 20:00] VITALS: BP 131/63
[2017-08-09] VITALS: BP 138/61
[2017-08-09 08:00] VITALS: BP 120/62
[2017-08-09 16:00] VITALS: BP 127/57
[2017-08-09 20:00] VITALS: BP 104/43
[2017-08-10 08:00] VITALS: BP 113/51
[2017-08-10 16:00] VITALS: BP 112/44
[2017-08-10 20:00] VITALS: BP 117/55
[2017-08-11] VITALS: BP 120/65
[2017-08-11 08:00] VITALS: BP 106/50
[2017-08-11] MEDS ORDERED: LACTULOSE20 GM/30 M PO (14:01)
[2017-08-11] MEDS ORDERED: THERA TABLET400 MCG PO (14:01)
[2017-08-11] MEDS ORDERED: XIFAXAN550 MG PO (14:01)
== END 2017-08-11 18:18 | disposition other institution (70) | DRG 70 ==
LOC: 4E 11:32
PROVIDERS: Emergency Medicine; Internal Medicine Hematology & Oncology; Registered Nurse; Student in an Organized Health Care Education/Training Program
DX: G93.41 Metabolic encephalopathy (principal); E43 Unspecified severe protein-calorie malnutrition; D61.818 Other pancytopenia; E87.8 Other disorders of electrolyte and fluid balance, not elsewhere classified; D69.6 Thrombocytopenia, unspecified; E72.20 Disorder of urea cycle metabolism, unspecified; I13.0 Hypertensive heart and chronic kidney disease with heart failure and stage 1 through stage 4 chronic kidney disease, or unspecified chronic kidney disease; I50.30 Unspecified diastolic (congestive) heart failure; Z79.899 Other long term (current) drug therapy; H35.30 Unspecified macular degeneration; D72.810 Lymphocytopenia; D72.821 Monocytosis (symptomatic); R73.9 Hyperglycemia, unspecified; D64.9 Anemia, unspecified; K74.60 Unspecified cirrhosis of liver; K43.9 Ventral hernia without obstruction or gangrene; Z66 Do not resuscitate; Z51.5 Encounter for palliative care; N18.3 Chronic kidney disease, stage 3 (moderate); Z86.73 Personal history of transient ischemic attack (TIA), and cerebral infarction without residual deficits; I25.2 Old myocardial infarction; Z90.49 Acquired absence of other specified parts of digestive tract; Z79.82 Long term (current) use of aspirin; Z79.2 Long term (current) use of antibiotics; Z68.21 Body mass index [BMI] 21.0-21.9, adult

== ENCOUNTER → 2017-08-22 | Outpatient (CLI) | payer OTHER ==
[2017-08-22] VITALS (7 sets, daily range): BP systolic 122–140; BP diastolic 51–63
[~2017-08-22] MED LIST changes: +THERA TABLET400 MCG PO; +XIFAXAN550 MG PO
[2017-08-23 00:10] VITALS: BP 133/57
[2017-08-23 00:40] VITALS: BP 142/56
[2017-08-23 01:00] VITALS: BP 135/64
[2017-08-23 02:00] VITALS: BP 132/58
[2017-08-23 02:40] VITALS: BP 132/56
== END | disposition home or self-care (01) ==
LOC: TRNFUSION 16:02
DX: D64.9 Anemia, unspecified (principal)

== ENCOUNTER → 2017-08-31 | Outpatient (CLI) | payer OTHER ==
[2017-08-31 15:55] LABS: BASO % 0.7 % (0.0-1.0); EOS # 0.4 10*3/uL (0.0-0.4); EOS % 12.1 % (1.0-4.0); HEMATOCRIT 31.7 % (42.0-52.0); HEMOGLOBIN 9.3 g/dl (14.0-18.0); LYMPH # 0.5 10*3/uL (1.3-4.4); LYMPH % 15.4 % (27.0-41.0); MEAN CELL VOLUME 83.9 fl (80.0-94.0); MEAN CORPUSCULAR HGB 24.6 pg (27.0-31.0); MEAN CORPUSCULAR HGB CONC 29.3 g/dl (33.0-37.0); MEAN PLATELET VOLUME 9.3 fl (9.6-12.3); MONO # 0.2 10*3/uL (0.1-1.0); NEUT # 1.9 10*3/uL (2.3-7.9); NEUT % 64.5 % (47.0-73.0); PLATELET COUNT AUTOMATED 57 10*3/uL (130-400); RED BLOOD COUNT 3.78 10*6/uL (4.50-5.90); RED CELL DISTRI WIDTH 18.9 % (0-14.5)
[2017-08-31 16:15] LABS: ALBUMIN 2.7 gm/dl (3.1-4.5); CREATININE 1.53 mg/dL (0.70-1.30); POTASSIUM 3.7 mmol/L (3.5-5.1)
== END | disposition home or self-care (01) ==
LOC: LAB 15:11
PROVIDERS: Internal Medicine
DX: K74.69 Other cirrhosis of liver (principal)

== ENCOUNTER → 2017-11-14 | Outpatient (CLI) | payer OTHER | END | disposition home or self-care (01) | LOC: RESCLI 01:53 | DX: I13.0 Hypertensive heart and chronic kidney disease with heart failure and stage 1 through stage 4 chronic kidney disease, or unspecified chronic kidney disease (principal); N18.3 Chronic kidney disease, stage 3 (moderate); I50.30 Unspecified diastolic (congestive) heart failure; K74.69 Other cirrhosis of liver; D63.8 Anemia in other chronic diseases classified elsewhere; D61.818 Other pancytopenia; I25.10 Atherosclerotic heart disease of native coronary artery without angina pectoris; K75.81 Nonalcoholic steatohepatitis (NASH); E46 Unspecified protein-calorie malnutrition; H61.21 Impacted cerumen, right ear; H35.30 Unspecified macular degeneration; Z79.899 Other long term (current) drug therapy; Z90.49 Acquired absence of other specified parts of digestive tract ==

== ENCOUNTER → 2018-05-11 | Outpatient (CLI) | payer OTHER, MEDICAID ==
[~2018-05-11] MED LIST changes: +LACTULOSE10 GM/151 PO; +LASIX20 MG PO; +URSO 250250 MG PO
[2018-05-11 10:18] LABS: EOS # 0.3 10*3/uL (0.0-0.4); EOS % 9.8 % (1.0-4.0); HEMATOCRIT 28.9 % (42.0-52.0); HEMOGLOBIN 9.1 g/dl (14.0-18.0); LYMPH # 0.4 10*3/uL (1.3-4.4); LYMPH % 13.2 % (27.0-41.0); MEAN CELL VOLUME 86.5 fl (80.0-94.0); MEAN CORPUSCULAR HGB 27.2 pg (27.0-31.0); MEAN CORPUSCULAR HGB CONC 31.5 g/dl (33.0-37.0); MEAN PLATELET VOLUME 8.1 fl (9.6-12.3); MONO # 0.2 10*3/uL (0.1-1.0); MONO % 6.1 % (3.0-9.0); NEUT # 2.1 10*3/uL (2.3-7.9); NEUT % 69.6 % (47.0-73.0); PLATELET COUNT AUTOMATED 54 10*3/uL (130-400); RED BLOOD COUNT 3.34 10*6/uL (4.50-5.90); RED CELL DISTRI WIDTH 17.6 % (0-14.5)
[2018-05-11 10:34] LABS: ALBUMIN 1.9 gm/dl (3.1-4.5); CREATININE 1.49 mg/dL (0.70-1.30); POTASSIUM 3.8 mmol/L (3.5-5.1); TOTAL PROTEIN 6.9 gm/dL (6.4-8.2)
== END | disposition home or self-care (01) ==
LOC: LAB 08:39 → RESCLI 08:39
PROVIDERS: Internal Medicine
DX: R60.0 Localized edema (principal)

== ENCOUNTER → 2018-05-30 | Outpatient (CLI) | payer OTHER, MEDICAID ==
[~2018-05-30] MED LIST changes: -LACTULOSE10 GM/151 PO; -LASIX20 MG PO; -URSO 250250 MG PO
== END | disposition home or self-care (01) ==
LOC: LAB 14:25
DX: K74.60 Unspecified cirrhosis of liver (principal)

== ENCOUNTER → 2018-05-31 | Outpatient (CLI) | payer OTHER, MEDICAID | END | disposition home or self-care (01) | LOC: RESCLI 04:28 | DX: I25.10 Atherosclerotic heart disease of native coronary artery without angina pectoris (principal); N18.3 Chronic kidney disease, stage 3 (moderate); I50.32 Chronic diastolic (congestive) heart failure; D63.8 Anemia in other chronic diseases classified elsewhere; K74.69 Other cirrhosis of liver; K75.81 Nonalcoholic steatohepatitis (NASH); Z86.73 Personal history of transient ischemic attack (TIA), and cerebral infarction without residual deficits; Z79.899 Other long term (current) drug therapy; Z79.82 Long term (current) use of aspirin; Z87.891 Personal history of nicotine dependence; Z88.8 Allergy status to other drugs, medicaments and biological substances ==